=== PATIENT | female | born 1950 | race Caucasian/White ===

== ENCOUNTER 2017-12-31 14:55 | Inpatient (IN) ==
[2017-12-31 16:15] LABS: Basophils # 0.1 10*3/uL (0.0-0.2); Basophils % 0.8 % (0.0-0.8); Eosinophils # 0.5 10*3/uL (0.0-0.87); Eosinophils % 4.1 % (0.00-10.9); Hematocrit 37.1 VOL% (35.7-47.0); Hemoglobin 12.6 GM/DL (12.0-16.0); Immature Granulocytes % 0.4 %; Immature Granulocytes Absolute 0.04 #; Lymphocytes # 2.5 10*3/uL (1.4-4.0); Lymphocytes % 22.7 % (21.3-54.2); Mean Corpuscular Hemoglobin 30 PG (27-34); Mean Corpuscular Volume 86.9 FL (87-102); Mean Platelet Volume 10.6 FL (9.6-12.0); Monocytes # 0.9 10*3/uL (0.11-0.8); Monocytes % 8.2 % (1.7-12.7); Neutrophils # 7.1 10*3/uL (1.4-7.4); Neutrophils % 63.8 % (38.7-73.9); Platelet Count 340 T/CUMM (130-400); Red Blood Count 4.27 MC/CUMM (3.8-5.5); Red Cell Distribution Width 13.4 % (9.3-17.3); White Blood Count 11.2 T/CUMM (4-12)
[2017-12-31 16:30] LABS: Apearance,Urine CLEAR (Clear); Bilirubin,Urine Negative (Negative); Blood, Urine Negative (Negative); Glucose,Urine (UA) 50 mg/dL (Negative); Ketones,Urine Negative (Negative); Mucus,Urine Occasional /LPF (Occasional); Nitrite,Urine Negative (Negative); Protein,Urine Negative; RBC,Urine 3 /HPF (0-4); Renal Epithelial Cells,Urine Occasional /HPF (<1); Squamous Epithelial Cell,Urine Occasional /HPF (0-10); Urine Color Amber (Yellow); Urine Specific Gravity 1.013 (1.001-1.035); WBC,Urine 4 /HPF (0-6)
[2017-12-31 16:42] LABS: Albumin 3.9 G/DL (3.4-5.0); Bilirubin,Total 1.7 MG/DL (0.2-1.0); Calcium 9.7 MG/DL (8.5-10.1); Osmolality,Calculated 271.5 MOS/KG (273-304); Potassium 4.1 MMOL/L (3.5-5.1); Total Protein 7.2 G/DL (6.4-8.3)
[2017-12-31] MEDS ORDERED: SODIUM CHLORIDE 0.9% 1,000 ML IV STA (19:17)
[2017-12-31] MEDS ORDERED: DEXTROSE 50% 25 GM/50 ML VIAL IV PRN (20:22)
[2017-12-31] MEDS ORDERED: ONDANSETRON 4 MG/2 ML VIAL IV PRN (20:22)
[2017-12-31] MEDS ORDERED: GLUCAGON 1 MG VIAL IM PRN (20:22)
[2017-12-31] MEDS ORDERED: PROMETHAZINE 25 MG/1 ML VIAL IM PRN (20:22)
[2017-12-31] MEDS: ENOXAPARIN 40 MG/0.4 ML SYRINGE SUBCUT SCH (21:54)
[2017-12-31] MEDS: INSULIN REGULAR 100 UNIT/ML SUBCUT SCH (21:55)
[2017-12-31] MEDS: SODIUM CHLORIDE 0.9% 1,000 ML IV SCH (22:36)
[2018-01-01] MEDS: SODIUM CHLORIDE 0.9% 1,000 ML IV SCH ×5 (01:10→20:40)
[2018-01-01] MEDS: INSULIN REGULAR 100 UNIT/ML SUBCUT SCH ×4 (07:58→21:12)
[2018-01-01] MEDS: PANTOPRAZOLE 40 MG VIAL IV SCH (08:56)
[2018-01-01] MEDS ORDERED: LORazepam 2 MG/1 ML VIAL IV ONE (10:13)
[2018-01-01] MEDS ORDERED: ALBUTEROL/IPRATROPIUM 3 ML NEB RESP TX PRN (16:49)
[2018-01-01] MEDS: metFORMIN 500 MG TABLET PO SCH (17:18)
[2018-01-01] MEDS: ENOXAPARIN 40 MG/0.4 ML SYRINGE SUBCUT SCH (20:37)
[2018-01-01] MEDS: MAGNESIUM CHLORIDE 64 MG TABLET PO SCH (20:38)
[2018-01-01] MEDS ORDERED: SIMVASTATIN 40 MG TABLET PO SCH (21:00)
[2018-01-01] MEDS: METOPROLOL SUCCINATE XL 25 MG TABLET PO SCH (21:12)
[2018-01-02] MEDS: SODIUM CHLORIDE 0.9% 1,000 ML IV SCH (04:28)
[2018-01-02] MEDS: MAGNESIUM CHLORIDE 64 MG TABLET PO SCH (08:30)
[2018-01-02] MEDS: METOPROLOL SUCCINATE XL 25 MG TABLET PO SCH (08:30)
[2018-01-02] MEDS: metFORMIN 500 MG TABLET PO SCH (08:30)
[2018-01-02] MEDS: PANTOPRAZOLE 40 MG VIAL IV SCH (08:37)
[2018-01-02] MEDS: INSULIN REGULAR 100 UNIT/ML SUBCUT SCH ×2 (08:37→11:39)
[2018-01-02] MEDS ORDERED: CHOLECALCIFEROL 400 UNIT TABLET PO SCH (09:00)
[2018-01-02] MEDS ORDERED: DILTIAZEM CD 240 MG CAPSULE PO SCH (09:00)
[2018-01-02] MEDS ORDERED: LOSARTAN 50 MG TABLET PO SCH (09:00)
[2018-01-02] MEDS ORDERED: CETIRIZINE 10 MG TABLET PO SCH (09:00)
[2018-01-02] MEDS ORDERED: FUROSEMIDE 40 MG/4 ML VIAL IV ONE (10:40)
[2018-01-02 12:30] VITALS: BP 132/60
[2018-01-02] MEDS ORDERED: metFORMIN 500 MG TABLET PO SCH (13:21)
[2018-01-03] MEDS ORDERED: glyBURIDE 5 MG TABLET PO SCH (08:00)
== END 2018-01-02 15:45 | disposition home or self-care (01) | DRG 437 ==
LOC: N.ED 14:55 → N.EDINP 19:19 → N.4E 20:45
PROVIDERS: ADMIT Hospitalist; ATTEND Hospitalist

== ENCOUNTER 2018-09-17 13:34 | Inpatient (IN) ==
[2018-09-17] MEDS ORDERED: SODIUM CHLORIDE 0.9% 1,000 ML IV STA (13:59)
[2018-09-17] MEDS ORDERED: ONDANSETRON 4 MG/2 ML VIAL IV STA (13:59)
[2018-09-17 14:45] LABS: Basophils % 0.6 % (0.0-0.8); Eosinophils # 0.1 10*3/uL (0.0-0.87); Eosinophils % 1.9 % (0.00-10.9); Hematocrit 27.1 VOL% (35.7-47.0); Hemoglobin 8.8 GM/DL (12.0-16.0); Immature Granulocytes % 0.6 %; Immature Granulocytes Absolute 0.03 #; Lymphocytes # 0.5 10*3/uL (1.4-4.0); Lymphocytes % 8.5 % (21.3-54.2); Mean Corpuscular HGB Conc 32.5 GM/DL (32-36); Mean Corpuscular Hemoglobin 29 PG (27-34); Mean Corpuscular Volume 89.4 FL (87-102); Mean Platelet Volume 9.6 FL (9.6-12.0); Monocytes # 0.5 10*3/uL (0.11-0.8); Monocytes % 8.7 % (1.7-12.7); Neutrophils # 4.3 10*3/uL (1.4-7.4); Neutrophils % 79.7 % (38.7-73.9); Platelet Count 211 T/CUMM (130-400); Red Blood Count 3.03 MC/CUMM (3.8-5.5); Red Cell Distribution Width 13.9 % (9.3-17.3); White Blood Count 5.4 T/CUMM (4-12)
[2018-09-17 15:15] LABS: Albumin 2.8 G/DL (3.4-5.0); Bilirubin,Total 0.5 MG/DL (0.2-1.0); Calcium 9.1 MG/DL (8.5-10.1); Osmolality,Calculated 269.1 MOS/KG (273-304); Potassium 3.9 MMOL/L (3.5-5.1); Total Protein 6.4 G/DL (6.4-8.3)
[2018-09-17] MEDS ORDERED: ACETAMINOPHEN 325 MG TABLET PO PRN (17:39)
[2018-09-17] MEDS ORDERED: ALBUTEROL 2.5 MG/3 ML NEB RESP TX PRN (17:42)
[2018-09-17] MEDS ORDERED: FENOFIBRATE 145 MG TABLET PO SCH (21:00)
[2018-09-17] MEDS ORDERED: SIMVASTATIN 40 MG TABLET PO SCH (21:00)
[2018-09-17] MEDS: HYDROmorphone 2 MG/1 ML VIAL IV PRN (21:39)
[2018-09-17] MEDS: ONDANSETRON 4 MG/2 ML VIAL IV PRN (21:39)
[2018-09-17] MEDS: SODIUM CHLORIDE 0.9% 1,000 ML IV SCH (21:40)
[2018-09-17] MEDS: METOPROLOL SUCCINATE XL 25 MG TABLET PO SCH (22:59)
[2018-09-17] MEDS: MOMETASONE FUROATE 220 MCG INH SCH (22:59)
[2018-09-18] MEDS: ONDANSETRON 4 MG/2 ML VIAL IV PRN ×4 (05:42→23:49)
[2018-09-18] MEDS: HYDROmorphone 2 MG/1 ML VIAL IV PRN ×4 (05:42→23:46)
[2018-09-18 06:28] LABS: Basophils % 0.4 % (0.0-0.8); Eosinophils # 0.2 10*3/uL (0.0-0.87); Eosinophils % 3.8 % (0.00-10.9); Hematocrit 25.7 VOL% (35.7-47.0); Hemoglobin 8.4 GM/DL (12.0-16.0); Immature Granulocytes % 0.4 %; Immature Granulocytes Absolute 0.02 #; Lymphocytes # 0.4 10*3/uL (1.4-4.0); Lymphocytes % 8.8 % (21.3-54.2); Mean Corpuscular HGB Conc 32.7 GM/DL (32-36); Mean Corpuscular Hemoglobin 29 PG (27-34); Mean Corpuscular Volume 89.9 FL (87-102); Mean Platelet Volume 9.8 FL (9.6-12.0); Monocytes # 0.6 10*3/uL (0.11-0.8); Monocytes % 12.1 % (1.7-12.7); Neutrophils # 3.6 10*3/uL (1.4-7.4); Neutrophils % 74.5 % (38.7-73.9); Platelet Count 157 T/CUMM (130-400); Red Blood Count 2.86 MC/CUMM (3.8-5.5); Red Cell Distribution Width 13.9 % (9.3-17.3); White Blood Count 4.8 T/CUMM (4-12)
[2018-09-18 06:35] LABS: INR 1.1
[2018-09-18 06:53] LABS: Calcium 8.7 MG/DL (8.5-10.1); Osmolality,Calculated 272.7 MOS/KG (273-304); Potassium 3.6 MMOL/L (3.5-5.1); Risk Ratio 2.26; Thyroid Stimulating Hormone 2.26 uIU/ml (0.358-3.74); VLDL CHOLESTEROL 21.8 MG/DL
[2018-09-18] MEDS ORDERED: MAGNESIUM SULF RIDER 4 GM in PREMIX 1 EACH IV PRN (08:16)
[2018-09-18] MEDS: MOMETASONE FUROATE 220 MCG INH SCH ×2 (09:00→22:02)
[2018-09-18] MEDS ORDERED: CHOLECALCIFEROL 5,000 UNIT TABLET PO SCH (09:00)
[2018-09-18] MEDS ORDERED: VITAMIN E 1000 UNIT CAPSULE PO SCH (09:00)
[2018-09-18] MEDS ORDERED: PANTOPRAZOLE 40 MG TABLET PO SCH (09:00)
[2018-09-18] MEDS ORDERED: ASPIRIN EC 325 MG TABLET PO SCH (09:00)
[2018-09-18] MEDS: THYROID 60 MG TABLET PO SCH (09:58)
[2018-09-18] MEDS: metroNIDAZOLE INJ 500 MG in PREMIX 1 EACH IV SCH ×2 (09:58→21:23)
[2018-09-18] MEDS: CETIRIZINE 10 MG TABLET PO SCH (09:59)
[2018-09-18] MEDS: LOSARTAN 50 MG TABLET PO SCH (09:59)
[2018-09-18] MEDS: DILTIAZEM CD 240 MG CAPSULE PO SCH (09:59)
[2018-09-18] MEDS: METOPROLOL SUCCINATE XL 25 MG TABLET PO SCH ×2 (10:00→22:02)
[2018-09-18] MEDS: Biotin 5,000 MCG PO SCH (10:06)
[2018-09-18] MEDS: MAGNESIUM SULF RIDER 2 GM in PREMIX 1 EACH IV PRN (11:44)
[2018-09-18] MEDS ORDERED: HYDROmorphone 2 MG/1 ML VIAL IV ONE (19:45)
[2018-09-18] MEDS: SODIUM CHLORIDE 0.9% 1,000 ML IV SCH ×2 (21:23→22:02)
[2018-09-19] MEDS: SODIUM CHLORIDE 0.9% 1,000 ML IV SCH ×2 (00:15→06:23)
[2018-09-19] MEDS: HYDROmorphone 2 MG/1 ML VIAL IV PRN ×6 (03:28→22:10)
[2018-09-19] MEDS: ONDANSETRON 4 MG/2 ML VIAL IV PRN ×5 (03:30→22:10)
[2018-09-19 06:25] LABS: Basophils % 0.8 % (0.0-0.8); Eosinophils # 0.2 10*3/uL (0.0-0.87); Eosinophils % 3.9 % (0.00-10.9); Hematocrit 24.3 VOL% (35.7-47.0); Immature Granulocytes % 0.2 %; Immature Granulocytes Absolute 0.01 #; Lymphocytes # 0.4 10*3/uL (1.4-4.0); Lymphocytes % 7.8 % (21.3-54.2); Mean Corpuscular HGB Conc 31.3 GM/DL (32-36); Mean Corpuscular Hemoglobin 29 PG (27-34); Mean Corpuscular Volume 91.7 FL (87-102); Mean Platelet Volume 10.1 FL (9.6-12.0); Monocytes # 0.7 10*3/uL (0.11-0.8); Monocytes % 14.8 % (1.7-12.7); Neutrophils # 3.5 10*3/uL (1.4-7.4); Neutrophils % 72.5 % (38.7-73.9); Platelet Count 149 T/CUMM (130-400); Red Blood Count 2.65 MC/CUMM (3.8-5.5); Red Cell Distribution Width 13.9 % (9.3-17.3); White Blood Count 4.9 T/CUMM (4-12)
[2018-09-19 06:34] LABS: Calcium 8.5 MG/DL (8.5-10.1); Osmolality,Calculated 275.4 MOS/KG (273-304); Potassium 3.4 MMOL/L (3.5-5.1)
[2018-09-19 06:55] LABS: Hemoglobin 7.6 GM/DL (12.0-16.0)
[2018-09-19] MEDS ORDERED: POTASSIUM CHLORIDE 20 MEQ TABLET PO PRN (08:23)
[2018-09-19] MEDS ORDERED: SODIUM CHLORIDE 0.9% 1,000 ML IV PRN (08:24)
[2018-09-19] MEDS ORDERED: DEXAMETHASONE 10 MG/1 ML VIAL IV ONE (08:43)
[2018-09-19] MEDS ORDERED: ACETAMINOPHEN 500 MG TABLET PO ONE (08:43)
[2018-09-19] MEDS ORDERED: diphenhydrAMINE CAP 25 MG CAPSULE PO ONE (08:43)
[2018-09-19] MEDS ORDERED: diphenhydrAMINE 50 MG/1 ML VIAL IV ONE (08:45)
[2018-09-19] MEDS: LOSARTAN 50 MG TABLET PO SCH (09:55)
[2018-09-19] MEDS: THYROID 60 MG TABLET PO SCH (09:55)
[2018-09-19] MEDS: PANTOPRAZOLE 40 MG VIAL IV SCH (09:55)
[2018-09-19] MEDS: Biotin 5,000 MCG PO SCH (09:56)
[2018-09-19] MEDS: MOMETASONE FUROATE 220 MCG INH SCH ×2 (09:56→21:28)
[2018-09-19] MEDS: METOPROLOL SUCCINATE XL 25 MG TABLET PO SCH ×2 (09:56→21:21)
[2018-09-19] MEDS: SODIUM CHLOR 0.45% KCL 20 MEQ 20 MEQ/1,000 ML BAG IV SCH (09:56)
[2018-09-19] MEDS: DILTIAZEM CD 240 MG CAPSULE PO SCH (09:56)
[2018-09-19] MEDS: CETIRIZINE 10 MG TABLET PO SCH (09:57)
[2018-09-19] MEDS: metroNIDAZOLE INJ 500 MG in PREMIX 1 EACH IV SCH ×2 (09:58→21:22)
[2018-09-19] MEDS: MAGNESIUM SULF RIDER 2 GM in PREMIX 1 EACH IV PRN (18:39)
[2018-09-19 19:13] LABS: Hematocrit 33.7 VOL% (35.7-47.0)
[2018-09-20] MEDS: ONDANSETRON 4 MG/2 ML VIAL IV PRN ×6 (02:59→21:56)
[2018-09-20] MEDS: HYDROmorphone 2 MG/1 ML VIAL IV PRN ×4 (03:00→21:55)
[2018-09-20 05:14] LABS: Basophils % 0.2 % (0.0-0.8); Hematocrit 32.4 VOL% (35.7-47.0); Hemoglobin 10.6 GM/DL (12.0-16.0); Immature Granulocytes % 0.6 %; Immature Granulocytes Absolute 0.03 #; Lymphocytes # 0.3 10*3/uL (1.4-4.0); Lymphocytes % 5.4 % (21.3-54.2); Mean Corpuscular HGB Conc 32.7 GM/DL (32-36); Mean Corpuscular Hemoglobin 29 PG (27-34); Mean Platelet Volume 9.8 FL (9.6-12.0); Monocytes # 0.3 10*3/uL (0.11-0.8); Monocytes % 5.8 % (1.7-12.7); Neutrophils # 4.2 10*3/uL (1.4-7.4); Platelet Count 161 T/CUMM (130-400); Red Blood Count 3.68 MC/CUMM (3.8-5.5); Red Cell Distribution Width 14.6 % (9.3-17.3); White Blood Count 4.8 T/CUMM (4-12)
[2018-09-20 05:31] LABS: Calcium 8.7 MG/DL (8.5-10.1); Osmolality,Calculated 274.8 MOS/KG (273-304); Potassium 4.2 MMOL/L (3.5-5.1)
[2018-09-20] MEDS: THYROID 60 MG TABLET PO SCH (08:58)
[2018-09-20] MEDS: LOSARTAN 50 MG TABLET PO SCH (08:58)
[2018-09-20] MEDS: METOPROLOL SUCCINATE XL 25 MG TABLET PO SCH ×2 (08:59→21:54)
[2018-09-20] MEDS: DILTIAZEM CD 240 MG CAPSULE PO SCH (08:59)
[2018-09-20] MEDS: CETIRIZINE 10 MG TABLET PO SCH (08:59)
[2018-09-20] MEDS: PANTOPRAZOLE 40 MG VIAL IV SCH (09:01)
[2018-09-20] MEDS: SODIUM CHLOR 0.45% KCL 20 MEQ 20 MEQ/1,000 ML BAG IV SCH ×2 (09:04→21:58)
[2018-09-20] MEDS: metroNIDAZOLE INJ 500 MG in PREMIX 1 EACH IV SCH ×2 (09:04→21:54)
[2018-09-20] MEDS: Biotin 5,000 MCG PO SCH (09:05)
[2018-09-20] MEDS: MOMETASONE FUROATE 220 MCG INH SCH (09:06)
[2018-09-20] MEDS ORDERED: LOPERAMIDE 2 MG CAPSULE PO PRN (10:40)
[2018-09-20] MEDS: LIPASE/PROTEASE/AMYLASE 4,200 UNITS CAPSULE PO SCH ×2 (12:16→16:57)
[2018-09-21] MEDS: MOMETASONE FUROATE 220 MCG INH SCH ×2 (01:37→10:38)
[2018-09-21] MEDS: ONDANSETRON 4 MG/2 ML VIAL IV PRN ×4 (02:20→22:30)
[2018-09-21] MEDS: HYDROmorphone 2 MG/1 ML VIAL IV PRN ×5 (02:20→22:29)
[2018-09-21 05:57] LABS: Basophils % 0.2 % (0.0-0.8); Eosinophils % 0.5 % (0.00-10.9); Hematocrit 30.4 VOL% (35.7-47.0); Hemoglobin 9.8 GM/DL (12.0-16.0); Immature Granulocytes % 0.5 %; Immature Granulocytes Absolute 0.03 #; Lymphocytes # 0.3 10*3/uL (1.4-4.0); Lymphocytes % 5.5 % (21.3-54.2); Mean Corpuscular HGB Conc 32.2 GM/DL (32-36); Mean Corpuscular Hemoglobin 29 PG (27-34); Mean Corpuscular Volume 90.2 FL (87-102); Mean Platelet Volume 9.6 FL (9.6-12.0); Monocytes # 0.6 10*3/uL (0.11-0.8); Monocytes % 10.5 % (1.7-12.7); Neutrophils % 82.8 % (38.7-73.9); Platelet Count 145 T/CUMM (130-400); Red Blood Count 3.37 MC/CUMM (3.8-5.5); Red Cell Distribution Width 14.9 % (9.3-17.3)
[2018-09-21 06:23] LABS: Calcium 8.3 MG/DL (8.5-10.1); Potassium 3.6 MMOL/L (3.5-5.1)
[2018-09-21] MEDS: LIPASE/PROTEASE/AMYLASE 4,200 UNITS CAPSULE PO SCH ×3 (10:33→18:04)
[2018-09-21] MEDS: metroNIDAZOLE INJ 500 MG in PREMIX 1 EACH IV SCH ×2 (10:34→22:28)
[2018-09-21] MEDS: LOSARTAN 50 MG TABLET PO SCH (10:35)
[2018-09-21] MEDS: DILTIAZEM CD 240 MG CAPSULE PO SCH (10:35)
[2018-09-21] MEDS: CETIRIZINE 10 MG TABLET PO SCH (10:36)
[2018-09-21] MEDS: PANTOPRAZOLE 40 MG VIAL IV SCH (10:36)
[2018-09-21] MEDS: THYROID 60 MG TABLET PO SCH (10:37)
[2018-09-21] MEDS: Biotin 5,000 MCG PO SCH (10:37)
[2018-09-21] MEDS: METOPROLOL SUCCINATE XL 25 MG TABLET PO SCH (10:38)
[2018-09-21] MEDS: SODIUM CHLOR 0.45% KCL 20 MEQ 20 MEQ/1,000 ML BAG IV SCH ×2 (15:46→16:20)
[2018-09-21] MEDS ORDERED: PANTOPRAZOLE 40 MG VIAL IV ONE (23:25)
[2018-09-22] MEDS: MOMETASONE FUROATE 220 MCG INH SCH ×3 (00:40→22:00)
[2018-09-22] MEDS: METOPROLOL SUCCINATE XL 25 MG TABLET PO SCH ×3 (00:40→21:59)
[2018-09-22] MEDS: HYDROmorphone 2 MG/1 ML VIAL IV PRN ×4 (06:49→21:53)
[2018-09-22] MEDS: metroNIDAZOLE INJ 500 MG in PREMIX 1 EACH IV SCH ×2 (09:21→21:58)
[2018-09-22] MEDS: PANTOPRAZOLE 40 MG VIAL IV SCH (09:21)
[2018-09-22] MEDS: SODIUM CHLOR 0.45% KCL 20 MEQ 20 MEQ/1,000 ML BAG IV SCH (12:04)
[2018-09-22] MEDS: THYROID 60 MG TABLET PO SCH (12:05)
[2018-09-22] MEDS: LIPASE/PROTEASE/AMYLASE 4,200 UNITS CAPSULE PO SCH ×3 (12:05→16:51)
[2018-09-22] MEDS: DILTIAZEM CD 240 MG CAPSULE PO SCH (12:06)
[2018-09-22] MEDS: Biotin 5,000 MCG PO SCH (12:07)
[2018-09-22] MEDS: LOSARTAN 50 MG TABLET PO SCH (12:07)
[2018-09-22] MEDS: CETIRIZINE 10 MG TABLET PO SCH (12:08)
[2018-09-22] MEDS: ONDANSETRON 4 MG/2 ML VIAL IV PRN ×2 (12:54→18:34)
[2018-09-22] MEDS: LEVOFLOXACIN INJ 500 MG in PREMIX 1 EACH IV SCH (13:39)
[2018-09-22] MEDS: MAGNESIUM SULF RIDER 2 GM in PREMIX 1 EACH IV PRN (14:49)
[2018-09-22 18:22] LABS: Apearance,Urine CLEAR (Clear); Bacteria,Urine Few /HPF (Few); Bilirubin,Urine Negative (Negative); Blood, Urine Small mg/dL (Negative); Glucose,Urine (UA) Negative (Negative); Ketones,Urine 5 mg/dL (Negative); Mucus,Urine Few /LPF (Occasional); Nitrite,Urine Negative (Negative); Protein,Urine Negative; RBC,Urine 5 /HPF (0-4); Squamous Epithelial Cell,Urine Occasional /HPF (0-10); Urine Color Yellow (Yellow); Urine Specific Gravity 1.009 (1.001-1.035); Urine Urobilinogen < 2.0 EU/DL (0.2-1.0); WBC,Urine 14 /HPF (0-6)
[2018-09-23] MEDS: ONDANSETRON 4 MG/2 ML VIAL IV PRN ×4 (01:37→22:14)
[2018-09-23] MEDS: HYDROmorphone 2 MG/1 ML VIAL IV PRN ×4 (01:39→22:14)
[2018-09-23] MEDS: SODIUM CHLOR 0.45% KCL 20 MEQ 20 MEQ/1,000 ML BAG IV SCH ×3 (04:10→22:07)
[2018-09-23 08:25] LABS: Calcium 7.9 MG/DL (8.5-10.1); Osmolality,Calculated 265.2 MOS/KG (273-304); Potassium 3.3 MMOL/L (3.5-5.1)
[2018-09-23] MEDS: CETIRIZINE 10 MG TABLET PO SCH (09:41)
[2018-09-23] MEDS: THYROID 60 MG TABLET PO SCH (09:42)
[2018-09-23] MEDS: LIPASE/PROTEASE/AMYLASE 4,200 UNITS CAPSULE PO SCH ×3 (09:42→17:41)
[2018-09-23] MEDS: Biotin 5,000 MCG PO SCH (09:43)
[2018-09-23] MEDS: MOMETASONE FUROATE 220 MCG INH SCH ×2 (09:43→20:56)
[2018-09-23] MEDS: PANTOPRAZOLE 40 MG VIAL IV SCH (09:43)
[2018-09-23] MEDS: metroNIDAZOLE INJ 500 MG in PREMIX 1 EACH IV SCH ×2 (09:44→20:54)
[2018-09-23 11:48] LABS: Basophils % 0.3 % (0.0-0.8); Eosinophils # 0.1 10*3/uL (0.0-0.87); Eosinophils % 3.1 % (0.00-10.9); Hemoglobin 10.2 GM/DL (12.0-16.0); Immature Granulocytes % 0.6 %; Immature Granulocytes Absolute 0.02 #; Lymphocytes # 0.3 10*3/uL (1.4-4.0); Lymphocytes % 7.2 % (21.3-54.2); Mean Corpuscular HGB Conc 32.9 GM/DL (32-36); Mean Corpuscular Hemoglobin 29 PG (27-34); Mean Corpuscular Volume 88.3 FL (87-102); Mean Platelet Volume 10.2 FL (9.6-12.0); Monocytes # 0.7 10*3/uL (0.11-0.8); Monocytes % 18.7 % (1.7-12.7); Neutrophils # 2.5 10*3/uL (1.4-7.4); Neutrophils % 70.1 % (38.7-73.9); Red Blood Count 3.51 MC/CUMM (3.8-5.5); Red Cell Distribution Width 14.9 % (9.3-17.3)
[2018-09-23 11:54] LABS: Platelet Count 93 T/CUMM (130-400); White Blood Count 3.6 T/CUMM (4-12)
[2018-09-23 12:29] LABS: Hypochromasia 1+; Microcytosis 1+; Ovalocytes Slight
[2018-09-23] MEDS: LEVOFLOXACIN INJ 500 MG in PREMIX 1 EACH IV SCH (14:27)
[2018-09-23] MEDS: DILTIAZEM CD 240 MG CAPSULE PO SCH (14:27)
[2018-09-23] MEDS: LOSARTAN 50 MG TABLET PO SCH (14:27)
[2018-09-23] MEDS: METOPROLOL SUCCINATE XL 25 MG TABLET PO SCH ×2 (14:27→20:54)
[2018-09-23 17:27] LABS: Eosinophils 2 % (0-10); Lymphocytes 4 % (20-55); Segmented Neutrophils 78 % (50-85); Total Cells Counted 100
[2018-09-23 17:28] LABS: Platelet Estimate Decreased
[2018-09-23] MEDS: MAGNESIUM SULF RIDER 2 GM in PREMIX 1 EACH IV PRN (18:19)
[2018-09-23] MEDS: POTASSIUM CHLORIDE RIDER 10 MEQ in PREMIX 1 EACH IV PRN ×2 (22:15→23:28)
[2018-09-24] MEDS: POTASSIUM CHLORIDE RIDER 10 MEQ in PREMIX 1 EACH IV PRN ×2 (02:13→05:32)
[2018-09-24] MEDS: ONDANSETRON 4 MG/2 ML VIAL IV PRN ×5 (02:14→23:29)
[2018-09-24] MEDS: HYDROmorphone 2 MG/1 ML VIAL IV PRN ×5 (02:14→23:29)
[2018-09-24] MEDS: SODIUM CHLOR 0.45% KCL 20 MEQ 20 MEQ/1,000 ML BAG IV SCH ×2 (02:33→05:32)
[2018-09-24 07:15] LABS: Potassium 3.7 MMOL/L (3.5-5.1)
[2018-09-24] MEDS: metroNIDAZOLE INJ 500 MG in PREMIX 1 EACH IV SCH ×2 (09:07→20:58)
[2018-09-24] MEDS: PANTOPRAZOLE 40 MG VIAL IV SCH (09:09)
[2018-09-24] MEDS: LIPASE/PROTEASE/AMYLASE 4,200 UNITS CAPSULE PO SCH ×3 (09:09→17:40)
[2018-09-24] MEDS: LOSARTAN 50 MG TABLET PO SCH (09:16)
[2018-09-24] MEDS: Biotin 5,000 MCG PO SCH (09:16)
[2018-09-24] MEDS: DILTIAZEM CD 240 MG CAPSULE PO SCH (09:16)
[2018-09-24] MEDS: THYROID 60 MG TABLET PO SCH (09:16)
[2018-09-24] MEDS: MOMETASONE FUROATE 220 MCG INH SCH (09:17)
[2018-09-24] MEDS: METOPROLOL SUCCINATE XL 25 MG TABLET PO SCH ×2 (09:17→20:58)
[2018-09-24] MEDS: CETIRIZINE 10 MG TABLET PO SCH (09:17)
[2018-09-24] MEDS: LEVOFLOXACIN INJ 500 MG in PREMIX 1 EACH IV SCH (12:50)
[2018-09-24] MEDS: MAGNESIUM SULF RIDER 2 GM in PREMIX 1 EACH IV PRN (15:45)
[2018-09-24] MEDS ORDERED: PANTOPRAZOLE 40 MG VIAL IV ONE (23:11)
[2018-09-25] MEDS: SODIUM CHLOR 0.45% KCL 20 MEQ 20 MEQ/1,000 ML BAG IV SCH ×2 (03:14→03:15)
[2018-09-25 05:16] LABS: Basophils % 0.7 % (0.0-0.8); Eosinophils # 0.3 10*3/uL (0.0-0.87); Eosinophils % 11.9 % (0.00-10.9); Hematocrit 30.5 VOL% (35.7-47.0); Hemoglobin 9.8 GM/DL (12.0-16.0); Immature Granulocytes % 0.4 %; Immature Granulocytes Absolute 0.01 #; Lymphocytes # 0.5 10*3/uL (1.4-4.0); Lymphocytes % 18.3 % (21.3-54.2); Mean Corpuscular HGB Conc 32.1 GM/DL (32-36); Mean Corpuscular Hemoglobin 29 PG (27-34); Mean Corpuscular Volume 89.7 FL (87-102); Mean Platelet Volume 10.4 FL (9.6-12.0); Monocytes # 0.6 10*3/uL (0.11-0.8); Monocytes % 21.2 % (1.7-12.7); Neutrophils # 1.3 10*3/uL (1.4-7.4); Neutrophils % 47.5 % (38.7-73.9); White Blood Count 2.8 T/CUMM (4-12)
[2018-09-25 05:18] LABS: Platelet Count 98 T/CUMM (130-400)
[2018-09-25 05:33] LABS: Blood Urea Nitrogen < 1 MG/DL (7-18); Glucose 104 MG/DL (74-106); Potassium 3.6 MMOL/L (3.5-5.1); Sodium 138 MMOL/L (136-145)
[2018-09-25] MEDS: MOMETASONE FUROATE 220 MCG INH SCH ×2 (06:07→09:23)
[2018-09-25 06:10] LABS: Eosinophils 9 % (0-10); Lymphocytes 15 % (20-55); Platelet Estimate Decreased; Segmented Neutrophils 50 % (50-85); Total Cells Counted 100
[2018-09-25] MEDS: MAGNESIUM SULF RIDER 2 GM in PREMIX 1 EACH IV PRN ×2 (06:30→11:38)
[2018-09-25] MEDS: METOPROLOL SUCCINATE XL 25 MG TABLET PO SCH (08:53)
[2018-09-25] MEDS: LOSARTAN 50 MG TABLET PO SCH (08:53)
[2018-09-25] MEDS: THYROID 60 MG TABLET PO SCH (08:54)
[2018-09-25] MEDS: CETIRIZINE 10 MG TABLET PO SCH (08:54)
[2018-09-25] MEDS: DILTIAZEM CD 240 MG CAPSULE PO SCH (08:54)
[2018-09-25] MEDS: PANTOPRAZOLE 40 MG VIAL IV SCH (08:54)
[2018-09-25] MEDS: metroNIDAZOLE INJ 500 MG in PREMIX 1 EACH IV SCH (08:55)
[2018-09-25] MEDS: LIPASE/PROTEASE/AMYLASE 4,200 UNITS CAPSULE PO SCH ×3 (08:56→18:13)
[2018-09-25] MEDS: Biotin 5,000 MCG PO SCH (09:23)
[2018-09-25] MEDS: ONDANSETRON 4 MG/2 ML VIAL IV PRN ×4 (09:43→21:46)
[2018-09-25] MEDS: HYDROmorphone 2 MG/1 ML VIAL IV PRN ×4 (09:45→21:43)
[2018-09-25] MEDS: LEVOFLOXACIN INJ 500 MG in PREMIX 1 EACH IV SCH (13:39)
[2018-09-25] MEDS: POTASSIUM CHLORIDE RIDER 10 MEQ in PREMIX 1 EACH IV PRN ×2 (21:34→23:49)
[2018-09-26] MEDS: SODIUM CHLOR 0.45% KCL 20 MEQ 20 MEQ/1,000 ML BAG IV SCH ×2 (00:50→00:58)
[2018-09-26] MEDS: METOPROLOL SUCCINATE XL 25 MG TABLET PO SCH ×2 (00:51→09:11)
[2018-09-26] MEDS: MOMETASONE FUROATE 220 MCG INH SCH ×2 (00:51→10:59)
[2018-09-26] MEDS: ONDANSETRON 4 MG/2 ML VIAL IV PRN ×2 (02:19→13:52)
[2018-09-26] MEDS: HYDROmorphone 2 MG/1 ML VIAL IV PRN ×2 (02:22→13:51)
[2018-09-26 05:08] LABS: Basophils % 0.6 % (0.0-0.8); Eosinophils # 0.3 10*3/uL (0.0-0.87); Eosinophils % 9.7 % (0.00-10.9); Hematocrit 31.4 VOL% (35.7-47.0); Hemoglobin 10.1 GM/DL (12.0-16.0); Immature Granulocytes % 0.3 %; Immature Granulocytes Absolute 0.01 #; Lymphocytes # 0.6 10*3/uL (1.4-4.0); Lymphocytes % 17.5 % (21.3-54.2); Mean Corpuscular HGB Conc 32.2 GM/DL (32-36); Mean Corpuscular Hemoglobin 29 PG (27-34); Mean Corpuscular Volume 89.5 FL (87-102); Mean Platelet Volume 10.6 FL (9.6-12.0); Monocytes # 0.6 10*3/uL (0.11-0.8); Monocytes % 17.2 % (1.7-12.7); Neutrophils # 1.8 10*3/uL (1.4-7.4); Neutrophils % 54.7 % (38.7-73.9); Platelet Count 113 T/CUMM (130-400); Red Blood Count 3.51 MC/CUMM (3.8-5.5); Red Cell Distribution Width 14.9 % (9.3-17.3); White Blood Count 3.3 T/CUMM (4-12)
[2018-09-26 05:38] LABS: Blood Urea Nitrogen < 1 MG/DL (7-18); Calcium 8.4 MG/DL (8.5-10.1); Glucose 92 MG/DL (74-106); Osmolality,Calculated 269.2 MOS/KG (273-304); Potassium 3.8 MMOL/L (3.5-5.1); Sodium 137 MMOL/L (136-145)
[2018-09-26] MEDS: POTASSIUM CHLORIDE RIDER 10 MEQ in PREMIX 1 EACH IV PRN (06:20)
[2018-09-26 06:51] LABS: Eosinophils 8 % (0-10); Lymphocytes 12 % (20-55); Platelet Estimate Decreased; Segmented Neutrophils 64 % (50-85); Total Cells Counted 100
[2018-09-26] MEDS: LOSARTAN 50 MG TABLET PO SCH (09:10)
[2018-09-26] MEDS: THYROID 60 MG TABLET PO SCH (09:10)
[2018-09-26] MEDS: CETIRIZINE 10 MG TABLET PO SCH (09:10)
[2018-09-26] MEDS: PANTOPRAZOLE 40 MG VIAL IV SCH (09:11)
[2018-09-26] MEDS: LEVOFLOXACIN INJ 500 MG in PREMIX 1 EACH IV SCH ×2 (09:12→10:59)
[2018-09-26] MEDS: LIPASE/PROTEASE/AMYLASE 4,200 UNITS CAPSULE PO SCH ×2 (10:59→13:02)
[2018-09-26] MEDS: DILTIAZEM CD 240 MG CAPSULE PO SCH (10:59)
[2018-09-26] MEDS: Biotin 5,000 MCG PO SCH (10:59)
[2018-09-26 13:01] VITALS: BP 123/72
== END 2018-09-26 14:24 | disposition home health service (06) | DRG 392 ==
LOC: N.ED 13:34 → SUATTDRO 17:17 → N.5E 17:17
PROVIDERS: ADMIT Internal Medicine; ATTEND Internal Medicine

== ENCOUNTER 2018-09-27 12:56 | Inpatient (IN) ==
[2018-09-27 14:03] LABS: Basophils % 0.6 % (0.0-0.8); Eosinophils # 0.1 10*3/uL (0.0-0.87); Eosinophils % 2.5 % (0.00-10.9); Hematocrit 35.3 VOL% (35.7-47.0); Hemoglobin 11.4 GM/DL (12.0-16.0); Immature Granulocytes % 0.4 %; Immature Granulocytes Absolute 0.02 #; Lymphocytes # 0.5 10*3/uL (1.4-4.0); Lymphocytes % 8.7 % (21.3-54.2); Mean Corpuscular HGB Conc 32.3 GM/DL (32-36); Mean Corpuscular Hemoglobin 29 PG (27-34); Mean Corpuscular Volume 88.3 FL (87-102); Mean Platelet Volume 10.7 FL (9.6-12.0); Monocytes # 0.6 10*3/uL (0.11-0.8); Monocytes % 12.1 % (1.7-12.7); Neutrophils # 3.9 10*3/uL (1.4-7.4); Neutrophils % 75.7 % (38.7-73.9); Platelet Count 159 T/CUMM (130-400); Red Cell Distribution Width 15.1 % (9.3-17.3); White Blood Count 5.2 T/CUMM (4-12)
[2018-09-27 14:22] LABS: Albumin 2.7 G/DL (3.4-5.0); Bilirubin,Total 0.7 MG/DL (0.2-1.0); Calcium 8.8 MG/DL (8.5-10.1); Osmolality,Calculated 272.5 MOS/KG (273-304); Potassium 3.7 MMOL/L (3.5-5.1); Total Protein 6.2 G/DL (6.4-8.3)
[2018-09-27] MEDS ORDERED: ONDANSETRON 4 MG/2 ML VIAL IV STA (15:22)
[2018-09-27] MEDS ORDERED: SODIUM CHLORIDE 0.9% 1,000 ML IV STA (15:23)
[2018-09-27] MEDS ORDERED: PROMETHAZINE 25 MG/1 ML VIAL IM STA (17:15)
[2018-09-27] MEDS ORDERED: PROMETHAZINE 25 MG/1 ML VIAL ONE (17:17)
[2018-09-27 17:52] LABS: Apearance,Urine CLEAR (Clear); Bilirubin,Urine Negative (Negative); Blood, Urine Negative (Negative); Glucose,Urine (UA) Negative (Negative); Ketones,Urine Negative (Negative); Mucus,Urine Occasional /LPF (Occasional); Nitrite,Urine Negative (Negative); Protein,Urine Negative; RBC,Urine 2 /HPF (0-4); Squamous Epithelial Cell,Urine Occasional /HPF (0-10); Urine Color Straw (Yellow); Urine Specific Gravity 1.026 (1.001-1.035); Urine Urobilinogen < 2.0 EU/DL (0.2-1.0); WBC,Urine 1 /HPF (0-6)
[2018-09-27] MEDS ORDERED: GLUCAGON 1 MG VIAL IM PRN (18:21)
[2018-09-27] MEDS ORDERED: DEXTROSE 50% 25 GM/50 ML SYRINGE IV PRN (18:21)
[2018-09-27] MEDS ORDERED: ONDANSETRON 4 MG TABLET PO PRN (18:22)
[2018-09-27] MEDS ORDERED: HYOSCYAMINE 0.125 MG TABLET PO PRN (18:22)
[2018-09-27] MEDS ORDERED: PROMETHAZINE 25 MG TABLET PO PRN (18:22)
[2018-09-27] MEDS ORDERED: LOPERAMIDE 2 MG CAPSULE PO PRN (18:22)
[2018-09-27] MEDS ORDERED: DEXT IV SCH (18:30)
[2018-09-27] MEDS ORDERED: AMINO ACIDS IV SCH (18:30)
[2018-09-27] MEDS ORDERED: LYTES IV SCH (18:30)
[2018-09-27] MEDS ORDERED: ALBUTEROL 2.5 MG/3 ML NEB RESP TX PRN (19:00)
[2018-09-27] MEDS ORDERED: PROMETHAZINE 25 MG/1 ML VIAL IM PRN (20:23)
[2018-09-27] MEDS ORDERED: NON-FORMULARY MEDICATION (Fenofibric Acid (Choline) [Fenofibric Acid] 135 MG) PO SCH (21:00)
[2018-09-27] MEDS: MOMETASONE 220 MCG/PUFF INHALER 14 DOSE INH SCH (22:34)
[2018-09-27] MEDS: SIMVASTATIN 40 MG TABLET PO SCH (22:46)
[2018-09-27] MEDS: METOPROLOL SUCCINATE XL 25 MG TABLET PO SCH (22:46)
[2018-09-27] MEDS: ONDANSETRON 4 MG/2 ML VIAL IV PRN (23:35)
[2018-09-28] MEDS: INSULIN REGULAR 100 UNIT/ML SUBCUT SCH ×4 (01:19→18:00)
[2018-09-28] MEDS: ONDANSETRON 4 MG/2 ML VIAL IV PRN ×5 (03:44→21:54)
[2018-09-28] MEDS: HYDROmorphone 2 MG/1 ML VIAL IV PRN ×5 (03:46→21:55)
[2018-09-28 05:41] LABS: Calcium 8.2 MG/DL (8.5-10.1); Osmolality,Calculated 277.3 MOS/KG (273-304); Potassium 3.4 MMOL/L (3.5-5.1)
[2018-09-28] MEDS: THYROID 60 MG TABLET PO SCH (10:49)
[2018-09-28] MEDS: DILTIAZEM CD 240 MG CAPSULE PO SCH (10:49)
[2018-09-28] MEDS: ASPIRIN EC 325 MG TABLET PO SCH (10:49)
[2018-09-28] MEDS: LOSARTAN 50 MG TABLET PO SCH (10:49)
[2018-09-28] MEDS: LANSOPRAZOLE ODT 30 MG TABLET PO SCH (10:50)
[2018-09-28] MEDS: CETIRIZINE 10 MG TABLET PO SCH (10:51)
[2018-09-28] MEDS: METOPROLOL SUCCINATE XL 25 MG TABLET PO SCH ×2 (10:51→21:55)
[2018-09-28] MEDS: ASCORBIC ACID 500 MG TABLET PO SCH (10:51)
[2018-09-28] MEDS: AMINO ACIDS/DEXT/LYTES 5-15% 2,000 ML IV SCH (15:12)
[2018-09-28] MEDS: MOMETASONE 220 MCG/PUFF INHALER 14 DOSE INH SCH ×2 (15:16→21:54)
[2018-09-28] MEDS: SIMVASTATIN 40 MG TABLET PO SCH (22:00)
[2018-09-29] MEDS: INSULIN REGULAR 100 UNIT/ML SUBCUT SCH ×4 (01:28→20:02)
[2018-09-29] MEDS: ONDANSETRON 4 MG/2 ML VIAL IV PRN ×5 (02:22→22:28)
[2018-09-29] MEDS: HYDROmorphone 2 MG/1 ML VIAL IV PRN ×5 (02:23→22:30)
[2018-09-29 05:12] LABS: Calcium 7.8 MG/DL (8.5-10.1); Osmolality,Calculated 271.8 MOS/KG (273-304); Potassium 3.3 MMOL/L (3.5-5.1)
[2018-09-29] MEDS: MOMETASONE 220 MCG/PUFF INHALER 14 DOSE INH SCH ×2 (09:05→20:46)
[2018-09-29] MEDS: ASPIRIN EC 325 MG TABLET PO SCH (11:26)
[2018-09-29] MEDS: LANSOPRAZOLE ODT 30 MG TABLET PO SCH (11:27)
[2018-09-29] MEDS: DILTIAZEM CD 240 MG CAPSULE PO SCH (11:27)
[2018-09-29] MEDS: LOSARTAN 50 MG TABLET PO SCH (11:27)
[2018-09-29] MEDS: METOPROLOL SUCCINATE XL 25 MG TABLET PO SCH (11:27)
[2018-09-29] MEDS: CETIRIZINE 10 MG TABLET PO SCH ×2 (11:28→12:17)
[2018-09-29] MEDS: ASCORBIC ACID 500 MG TABLET PO SCH (11:28)
[2018-09-29] MEDS: PANTOPRAZOLE 40 MG VIAL IV SCH (12:17)
[2018-09-29] MEDS: LEVOTHYROXINE 100 MCG VIAL IV SCH (12:18)
[2018-09-29] MEDS: cloNIDine 0.1 MG/24 HR PATCH TRANSDERM SCH (12:20)
[2018-09-29] MEDS: THYROID 60 MG TABLET PO SCH (12:28)
[2018-09-29] MEDS ORDERED: MAGNESIUM SULF RIDER 2 GM in PREMIX 1 EACH IV ONE (15:41)
[2018-09-29] MEDS: TRACE ELEMENTS (5) 1 ML, MULTIVITAMIN INJ 10 ML in AMINO ACIDS/DEXT/LYTES 5-15% 2,000 ML IV SCH (18:45)
[2018-09-29] MEDS: FAT EMULSION 20% 250 ML IV SCH (18:45)
[2018-09-29] MEDS: AMINO ACIDS/DEXT/LYTES 5-15% 2,000 ML IV SCH (20:03)
[2018-09-29] MEDS: SIMVASTATIN 40 MG TABLET PO SCH (20:45)
[2018-09-30] MEDS: INSULIN REGULAR 100 UNIT/ML SUBCUT SCH ×4 (00:24→19:26)
[2018-09-30] MEDS: ONDANSETRON 4 MG/2 ML VIAL IV PRN ×5 (02:24→21:37)
[2018-09-30] MEDS: HYDROmorphone 2 MG/1 ML VIAL IV PRN ×5 (02:26→21:37)
[2018-09-30] MEDS ORDERED: POTASSIUM CHLORIDE RIDER 20 MEQ in PREMIX 1 EACH IV PRN (08:22)
[2018-09-30] MEDS ORDERED: POTASSIUM CHLORIDE RIDER 10 MEQ in PREMIX 1 EACH IV PRN (08:22)
[2018-09-30] MEDS ORDERED: MAGNESIUM SULF RIDER 4 GM in PREMIX 1 EACH IV PRN (08:23)
[2018-09-30] MEDS ORDERED: MAGNESIUM SULF RIDER 2 GM in PREMIX 1 EACH IV PRN (08:23)
[2018-09-30] MEDS: PANTOPRAZOLE 40 MG VIAL IV SCH (09:52)
[2018-09-30] MEDS: CETIRIZINE 10 MG TABLET PO SCH (09:53)
[2018-09-30] MEDS: ASPIRIN EC 325 MG TABLET PO SCH (09:57)
[2018-09-30] MEDS: MOMETASONE 220 MCG/PUFF INHALER 14 DOSE INH SCH ×2 (09:57→21:41)
[2018-09-30] MEDS: ASCORBIC ACID 500 MG TABLET PO SCH (09:58)
[2018-09-30] MEDS: LEVOTHYROXINE 100 MCG VIAL IV SCH (10:06)
[2018-09-30] MEDS: DIPHENOXYLATE/ATROPINE 2.5-0.025 MG TABLET PO SCH ×2 (17:35→21:46)
[2018-09-30] MEDS: FAT EMULSION 20% 250 ML IV SCH (17:36)
[2018-09-30] MEDS: SIMVASTATIN 40 MG TABLET PO SCH (22:49)
[2018-10-01] MEDS: TRACE ELEMENTS (5) 1 ML, MULTIVITAMIN INJ 10 ML in AMINO ACIDS/DEXT/LYTES 5-15% 2,000 ML IV SCH (00:50)
[2018-10-01] MEDS: INSULIN REGULAR 100 UNIT/ML SUBCUT SCH ×4 (00:54→19:23)
[2018-10-01] MEDS: HYDROmorphone 2 MG/1 ML VIAL IV PRN ×5 (01:30→20:57)
[2018-10-01] MEDS: ONDANSETRON 4 MG/2 ML VIAL IV PRN ×5 (01:30→20:57)
[2018-10-01 07:01] LABS: Calcium 8.1 MG/DL (8.5-10.1); Osmolality,Calculated 274.8 MOS/KG (273-304); Potassium 3.8 MMOL/L (3.5-5.1)
[2018-10-01] MEDS: CETIRIZINE 10 MG TABLET PO SCH (10:16)
[2018-10-01] MEDS: DIPHENOXYLATE/ATROPINE 2.5-0.025 MG TABLET PO SCH ×2 (10:16→20:55)
[2018-10-01] MEDS: LEVOTHYROXINE 100 MCG VIAL IV SCH (10:16)
[2018-10-01] MEDS: PANTOPRAZOLE 40 MG VIAL IV SCH (10:18)
[2018-10-01] MEDS: ASCORBIC ACID 500 MG TABLET PO SCH (10:21)
[2018-10-01] MEDS: MOMETASONE 220 MCG/PUFF INHALER 14 DOSE INH SCH ×2 (10:21→21:01)
[2018-10-01] MEDS: ASPIRIN EC 325 MG TABLET PO SCH (10:21)
[2018-10-01] MEDS: FAT EMULSION 20% 250 ML IV SCH (19:29)
[2018-10-01] MEDS: SIMVASTATIN 40 MG TABLET PO SCH (21:02)
[2018-10-02] MEDS: INSULIN REGULAR 100 UNIT/ML SUBCUT SCH ×4 (00:01→19:19)
[2018-10-02] MEDS: TRACE ELEMENTS (5) 1 ML, MULTIVITAMIN INJ 10 ML in AMINO ACIDS/DEXT/LYTES 5-15% 2,000 ML IV SCH (01:15)
[2018-10-02] MEDS: ONDANSETRON 4 MG/2 ML VIAL IV PRN ×5 (01:21→21:19)
[2018-10-02] MEDS: HYDROmorphone 2 MG/1 ML VIAL IV PRN ×5 (01:22→21:19)
[2018-10-02 05:15] LABS: Basophils % 0.6 % (0.0-0.8); Eosinophils # 0.3 10*3/uL (0.0-0.87); Eosinophils % 8.7 % (0.00-10.9); Hematocrit 29.6 VOL% (35.7-47.0); Hemoglobin 9.3 GM/DL (12.0-16.0); Lymphocytes # 0.4 10*3/uL (1.4-4.0); Lymphocytes % 14.1 % (21.3-54.2); Mean Corpuscular HGB Conc 31.4 GM/DL (32-36); Mean Corpuscular Hemoglobin 28 PG (27-34); Mean Corpuscular Volume 90.5 FL (87-102); Mean Platelet Volume 11.4 FL (9.6-12.0); Monocytes # 0.6 10*3/uL (0.11-0.8); Monocytes % 18.6 % (1.7-12.7); Neutrophils # 1.8 10*3/uL (1.4-7.4); Red Blood Count 3.27 MC/CUMM (3.8-5.5); Red Cell Distribution Width 15.1 % (9.3-17.3); White Blood Count 3.1 T/CUMM (4-12)
[2018-10-02 05:18] LABS: Platelet Count 92 T/CUMM (130-400)
[2018-10-02 05:39] LABS: Bilirubin,Total 0.4 MG/DL (0.2-1.0); Calcium 8.1 MG/DL (8.5-10.1); Osmolality,Calculated 277.7 MOS/KG (273-304)
[2018-10-02 05:41] LABS: Anisocytosis 1+; Band Neutrophils 2 % (0-10); Eosinophils 9 % (0-10); Lymphocytes 15 % (20-55); Platelet Estimate Decreased; Segmented Neutrophils 61 % (50-85); Total Cells Counted 100
[2018-10-02] MEDS: LEVOTHYROXINE 100 MCG VIAL IV SCH (09:24)
[2018-10-02] MEDS: PANTOPRAZOLE 40 MG VIAL IV SCH (09:26)
[2018-10-02] MEDS: CETIRIZINE 10 MG TABLET PO SCH (11:16)
[2018-10-02] MEDS: MOMETASONE 220 MCG/PUFF INHALER 14 DOSE INH SCH ×2 (12:30→21:18)
[2018-10-02] MEDS: ASCORBIC ACID 500 MG TABLET PO SCH (12:30)
[2018-10-02] MEDS: ASPIRIN EC 325 MG TABLET PO SCH (12:30)
[2018-10-02] MEDS: DIPHENOXYLATE/ATROPINE 2.5-0.025 MG TABLET PO SCH ×2 (15:55→21:19)
[2018-10-02] MEDS: FAT EMULSION 20% 250 ML IV SCH (16:03)
[2018-10-02] MEDS: SIMVASTATIN 40 MG TABLET PO SCH (21:20)
[2018-10-03] MEDS: INSULIN REGULAR 100 UNIT/ML SUBCUT SCH ×5 (00:25→23:58)
[2018-10-03] MEDS: ONDANSETRON 4 MG/2 ML VIAL IV PRN ×6 (01:26→22:20)
[2018-10-03] MEDS: HYDROmorphone 2 MG/1 ML VIAL IV PRN ×6 (01:27→22:23)
[2018-10-03] MEDS: TRACE ELEMENTS (5) 1 ML, MULTIVITAMIN INJ 10 ML in AMINO ACIDS/DEXT/LYTES 5-15% 2,000 ML IV SCH (01:27)
[2018-10-03 05:37] LABS: Eosinophils # 0.3 10*3/uL (0.0-0.87); Eosinophils % 10.7 % (0.00-10.9); Hematocrit 29.7 VOL% (35.7-47.0); Hemoglobin 9.4 GM/DL (12.0-16.0); Immature Granulocytes % 0.3 %; Immature Granulocytes Absolute 0.01 #; Lymphocytes # 0.6 10*3/uL (1.4-4.0); Lymphocytes % 18.1 % (21.3-54.2); Mean Corpuscular HGB Conc 31.6 GM/DL (32-36); Mean Corpuscular Hemoglobin 29 PG (27-34); Mean Platelet Volume 11.6 FL (9.6-12.0); Monocytes # 0.5 10*3/uL (0.11-0.8); Monocytes % 15.5 % (1.7-12.7); Neutrophils # 1.7 10*3/uL (1.4-7.4); Neutrophils % 54.4 % (38.7-73.9); Platelet Count 98 T/CUMM (130-400); Red Cell Distribution Width 15.3 % (9.3-17.3); White Blood Count 3.1 T/CUMM (4-12)
[2018-10-03 05:58] LABS: Albumin 2.1 G/DL (3.4-5.0); Bilirubin,Total 0.5 MG/DL (0.2-1.0); Calcium 8.3 MG/DL (8.5-10.1); Osmolality,Calculated 279.5 MOS/KG (273-304); Potassium 3.9 MMOL/L (3.5-5.1); Total Protein 5.1 G/DL (6.4-8.3)
[2018-10-03] MEDS: DIPHENOXYLATE/ATROPINE 2.5-0.025 MG TABLET PO SCH ×3 (06:01→21:44)
[2018-10-03 06:10] LABS: Anisocytosis 1+; Band Neutrophils 5 % (0-10); Eosinophils 7 % (0-10); Lymphocytes 8 % (20-55); Platelet Estimate Decreased; Segmented Neutrophils 68 % (50-85); Total Cells Counted 100
[2018-10-03 06:11] LABS: Hypochromasia Slight; Poikilocytosis Slight
[2018-10-03] MEDS: LEVOTHYROXINE 100 MCG VIAL IV SCH (09:02)
[2018-10-03] MEDS: CETIRIZINE 10 MG TABLET PO SCH (09:02)
[2018-10-03] MEDS: PANTOPRAZOLE 40 MG VIAL IV SCH (09:05)
[2018-10-03] MEDS: ASCORBIC ACID 500 MG TABLET PO SCH (09:08)
[2018-10-03] MEDS: ASPIRIN EC 325 MG TABLET PO SCH (09:08)
[2018-10-03] MEDS: MOMETASONE 220 MCG/PUFF INHALER 14 DOSE INH SCH ×2 (09:08→21:43)
[2018-10-03] MEDS: FAT EMULSION 20% 250 ML IV SCH (16:43)
[2018-10-03] MEDS: SIMVASTATIN 40 MG TABLET PO SCH (21:43)
[2018-10-04] MEDS: ONDANSETRON 4 MG/2 ML VIAL IV PRN ×5 (02:22→20:33)
[2018-10-04] MEDS: HYDROmorphone 2 MG/1 ML VIAL IV PRN ×5 (02:24→20:35)
[2018-10-04 05:25] LABS: Eosinophils # 0.4 10*3/uL (0.0-0.87); Eosinophils % 8.9 % (0.00-10.9); Hematocrit 31.5 VOL% (35.7-47.0); Hemoglobin 9.9 GM/DL (12.0-16.0); Immature Granulocytes % 0.5 %; Immature Granulocytes Absolute 0.02 #; Lymphocytes # 0.3 10*3/uL (1.4-4.0); Lymphocytes % 7.9 % (21.3-54.2); Mean Corpuscular HGB Conc 31.4 GM/DL (32-36); Mean Corpuscular Hemoglobin 28 PG (27-34); Mean Corpuscular Volume 90.3 FL (87-102); Mean Platelet Volume 11.7 FL (9.6-12.0); Monocytes # 0.5 10*3/uL (0.11-0.8); Monocytes % 13.2 % (1.7-12.7); Neutrophils # 2.7 10*3/uL (1.4-7.4); Neutrophils % 68.5 % (38.7-73.9); Platelet Count 105 T/CUMM (130-400); Red Blood Count 3.49 MC/CUMM (3.8-5.5); Red Cell Distribution Width 15.3 % (9.3-17.3); White Blood Count 3.9 T/CUMM (4-12)
[2018-10-04 05:58] LABS: Albumin 2.5 G/DL (3.4-5.0); Bilirubin,Total 0.7 MG/DL (0.2-1.0); Calcium 8.2 MG/DL (8.5-10.1); Osmolality,Calculated 275.8 MOS/KG (273-304); Potassium 3.8 MMOL/L (3.5-5.1); Total Protein 5.6 G/DL (6.4-8.3)
[2018-10-04] MEDS: INSULIN REGULAR 100 UNIT/ML SUBCUT SCH ×3 (06:01→18:29)
[2018-10-04] MEDS: DIPHENOXYLATE/ATROPINE 2.5-0.025 MG TABLET PO SCH ×3 (07:22→22:05)
[2018-10-04] MEDS: HYOSCYAMINE 0.125 MG TABLET SL SCH ×4 (10:24→22:05)
[2018-10-04] MEDS: ASPIRIN EC 325 MG TABLET PO SCH (10:24)
[2018-10-04] MEDS: ASCORBIC ACID 500 MG TABLET PO SCH (10:24)
[2018-10-04] MEDS: LEVOTHYROXINE 100 MCG VIAL IV SCH (10:25)
[2018-10-04] MEDS: MOMETASONE 220 MCG/PUFF INHALER 14 DOSE INH SCH ×2 (10:25→20:43)
[2018-10-04] MEDS: CETIRIZINE 10 MG TABLET PO SCH (10:25)
[2018-10-04] MEDS: PANTOPRAZOLE 40 MG VIAL IV SCH (10:28)
[2018-10-04] MEDS: TRACE ELEMENTS (5) 1 ML, MULTIVITAMIN INJ 10 ML in AMINO ACIDS/DEXT/LYTES 5-15% 2,000 ML IV SCH (10:50)
[2018-10-04] MEDS: FAT EMULSION 20% 250 ML IV SCH (16:22)
[2018-10-04] MEDS: SIMVASTATIN 40 MG TABLET PO SCH (20:33)
[2018-10-05] MEDS: ONDANSETRON 4 MG/2 ML VIAL IV PRN ×4 (00:26→13:27)
[2018-10-05] MEDS: HYDROmorphone 2 MG/1 ML VIAL IV PRN ×6 (00:28→21:32)
[2018-10-05] MEDS: INSULIN REGULAR 100 UNIT/ML SUBCUT SCH ×4 (01:48→17:42)
[2018-10-05] MEDS: HYOSCYAMINE 0.125 MG TABLET SL SCH ×6 (01:56→22:53)
[2018-10-05 06:15] LABS: Basophils % 0.7 % (0.0-0.8); Eosinophils # 0.2 10*3/uL (0.0-0.87); Eosinophils % 8.1 % (0.00-10.9); Hematocrit 28.1 VOL% (35.7-47.0); Immature Granulocytes % 0.4 %; Immature Granulocytes Absolute 0.01 #; Lymphocytes # 0.3 10*3/uL (1.4-4.0); Mean Corpuscular Hemoglobin 29 PG (27-34); Mean Corpuscular Volume 89.5 FL (87-102); Mean Platelet Volume 11.7 FL (9.6-12.0); Monocytes # 0.5 10*3/uL (0.11-0.8); Neutrophils # 1.7 10*3/uL (1.4-7.4); Neutrophils % 60.8 % (38.7-73.9); Platelet Count 81 T/CUMM (130-400); Red Blood Count 3.14 MC/CUMM (3.8-5.5); Red Cell Distribution Width 15.3 % (9.3-17.3); White Blood Count 2.8 T/CUMM (4-12)
[2018-10-05 06:48] LABS: Albumin 2.2 G/DL (3.4-5.0); Bilirubin,Total 0.7 MG/DL (0.2-1.0); Calcium 8.2 MG/DL (8.5-10.1); Osmolality,Calculated 275.8 MOS/KG (273-304); Potassium 4.2 MMOL/L (3.5-5.1); Total Protein 5.1 G/DL (6.4-8.3)
[2018-10-05] MEDS: DIPHENOXYLATE/ATROPINE 2.5-0.025 MG TABLET PO SCH ×3 (09:05→22:52)
[2018-10-05] MEDS: PANTOPRAZOLE 40 MG VIAL IV SCH (09:05)
[2018-10-05] MEDS: ASPIRIN EC 325 MG TABLET PO SCH (09:05)
[2018-10-05] MEDS: LEVOTHYROXINE 100 MCG VIAL IV SCH (09:05)
[2018-10-05] MEDS: CETIRIZINE 10 MG TABLET PO SCH (09:05)
[2018-10-05] MEDS: ASCORBIC ACID 500 MG TABLET PO SCH (09:05)
[2018-10-05] MEDS: MOMETASONE 220 MCG/PUFF INHALER 14 DOSE INH SCH ×2 (09:12→22:54)
[2018-10-05 09:37] LABS: Eosinophils 7 % (0-10); Lymphocytes 8 % (20-55); Segmented Neutrophils 63 % (50-85); Total Cells Counted 100
[2018-10-05 09:38] LABS: Hypochromasia 1+; Ovalocytes Few; Platelet Estimate Decreased; Polychromasia Slight; Schistocytes Few
[2018-10-05] MEDS: TRACE ELEMENTS (5) 1 ML, MULTIVITAMIN INJ 10 ML in AMINO ACIDS/DEXT/LYTES 5-15% 2,000 ML IV SCH (13:40)
[2018-10-05] MEDS: FAT EMULSION 20% 250 ML IV SCH (16:39)
[2018-10-05] MEDS: SIMVASTATIN 40 MG TABLET PO SCH (21:32)
[2018-10-06] MEDS: HYDROmorphone 2 MG/1 ML VIAL IV PRN ×6 (01:21→22:23)
[2018-10-06] MEDS: ONDANSETRON 4 MG/2 ML VIAL IV PRN ×6 (01:23→22:19)
[2018-10-06] MEDS: INSULIN REGULAR 100 UNIT/ML SUBCUT SCH ×5 (01:40→23:52)
[2018-10-06] MEDS: HYOSCYAMINE 0.125 MG TABLET SL SCH ×6 (02:32→22:15)
[2018-10-06 05:42] LABS: Basophils % 1.2 % (0.0-0.8); Eosinophils # 0.3 10*3/uL (0.0-0.87); Eosinophils % 9.8 % (0.00-10.9); Hematocrit 28.2 VOL% (35.7-47.0); Immature Granulocytes % 0.4 %; Immature Granulocytes Absolute 0.01 #; Lymphocytes # 0.4 10*3/uL (1.4-4.0); Mean Corpuscular HGB Conc 31.9 GM/DL (32-36); Mean Corpuscular Hemoglobin 29 PG (27-34); Mean Corpuscular Volume 90.1 FL (87-102); Mean Platelet Volume 12.1 FL (9.6-12.0); Monocytes # 0.7 10*3/uL (0.11-0.8); Monocytes % 25.8 % (1.7-12.7); Neutrophils # 1.2 10*3/uL (1.4-7.4); Neutrophils % 46.8 % (38.7-73.9); Red Blood Count 3.13 MC/CUMM (3.8-5.5); Red Cell Distribution Width 15.4 % (9.3-17.3); White Blood Count 2.6 T/CUMM (4-12)
[2018-10-06 05:49] LABS: Platelet Count 82 T/CUMM (130-400)
[2018-10-06 06:09] LABS: Albumin 2.3 G/DL (3.4-5.0); Bilirubin,Total 0.9 MG/DL (0.2-1.0); Calcium 8.2 MG/DL (8.5-10.1); Osmolality,Calculated 280.5 MOS/KG (273-304); Total Protein 5.2 G/DL (6.4-8.3)
[2018-10-06 06:15] LABS: Calcium 8.1 MG/DL (8.5-10.1); Osmolality,Calculated 278.7 MOS/KG (273-304); Potassium 3.9 MMOL/L (3.5-5.1); Prealbumin 8.6 MG/DL (20-40)
[2018-10-06 06:45] LABS: Band Neutrophils 1 % (0-10); Eosinophils 11 % (0-10); Lymphocytes 16 % (20-55); Segmented Neutrophils 56 % (50-85); Total Cells Counted 100
[2018-10-06 06:46] LABS: Hypochromasia 1+; Microcytosis 1+; Ovalocytes Slight; Platelet Estimate Decreased
[2018-10-06] MEDS: DIPHENOXYLATE/ATROPINE 2.5-0.025 MG TABLET PO SCH ×3 (09:48→22:15)
[2018-10-06] MEDS: ASPIRIN EC 325 MG TABLET PO SCH (09:48)
[2018-10-06] MEDS: CETIRIZINE 10 MG TABLET PO SCH (09:48)
[2018-10-06] MEDS: ASCORBIC ACID 500 MG TABLET PO SCH (09:48)
[2018-10-06] MEDS: PANTOPRAZOLE 40 MG VIAL IV SCH (09:50)
[2018-10-06] MEDS: LEVOTHYROXINE 100 MCG VIAL IV SCH (09:51)
[2018-10-06] MEDS: MOMETASONE 220 MCG/PUFF INHALER 14 DOSE INH SCH ×2 (09:57→20:52)
[2018-10-06] MEDS: cloNIDine 0.1 MG/24 HR PATCH TRANSDERM SCH (12:22)
[2018-10-06] MEDS ORDERED: [UNRECOGNIZED DRUG - OTHER] IV SCH (14:00)
[2018-10-06] MEDS ORDERED: MULTIVITAMIN IV SCH (14:00)
[2018-10-06] MEDS ORDERED: TRACE ELEMENTS IV SCH (14:00)
[2018-10-06] MEDS ORDERED: MAGNESIUM SULF IV SCH (14:00)
[2018-10-06] MEDS ORDERED: MAGNESIUM SULF RIDER 2 GM in PREMIX 1 EACH IV PRN (15:00)
[2018-10-06] MEDS: FAT EMULSION 20% 250 ML IV SCH (18:15)
[2018-10-06] MEDS: TRACE ELEMENTS IV SCH (18:15)
[2018-10-06] MEDS: MULTIVITAMIN IV SCH (18:15)
[2018-10-06] MEDS: MAGNESIUM SULF IV SCH (18:15)
[2018-10-06] MEDS: [UNRECOGNIZED DRUG - OTHER] IV SCH (18:15)
[2018-10-06] MEDS: TRACE ELEMENTS (5) 1 ML, MULTIVITAMIN INJ 10 ML in AMINO ACIDS/DEXT/LYTES 5-15% 2,000 ML IV SCH (19:45)
[2018-10-06] MEDS: ONDANSETRON 4 MG TABLET PO SCH ×2 (20:10→23:50)
[2018-10-06] MEDS: SIMVASTATIN 40 MG TABLET PO SCH (20:52)
[2018-10-07] MEDS: HYOSCYAMINE 0.125 MG TABLET SL SCH ×6 (02:20→22:07)
[2018-10-07] MEDS: ONDANSETRON 4 MG/2 ML VIAL IV PRN ×5 (02:20→22:11)
[2018-10-07] MEDS: HYDROmorphone 2 MG/1 ML VIAL IV PRN ×5 (02:24→22:18)
[2018-10-07 04:36] LABS: Basophils % 0.7 % (0.0-0.8); Eosinophils # 0.4 10*3/uL (0.0-0.87); Eosinophils % 11.9 % (0.00-10.9); Hematocrit 28.4 VOL% (35.7-47.0); Hemoglobin 8.9 GM/DL (12.0-16.0); Immature Granulocytes % 0.3 %; Immature Granulocytes Absolute 0.01 #; Lymphocytes # 0.5 10*3/uL (1.4-4.0); Lymphocytes % 15.8 % (21.3-54.2); Mean Corpuscular HGB Conc 31.3 GM/DL (32-36); Mean Corpuscular Hemoglobin 28 PG (27-34); Mean Corpuscular Volume 90.2 FL (87-102); Mean Platelet Volume 11.9 FL (9.6-12.0); Monocytes # 0.7 10*3/uL (0.11-0.8); Monocytes % 21.5 % (1.7-12.7); Neutrophils # 1.5 10*3/uL (1.4-7.4); Neutrophils % 49.8 % (38.7-73.9); Platelet Count 98 T/CUMM (130-400); Red Blood Count 3.15 MC/CUMM (3.8-5.5); Red Cell Distribution Width 15.3 % (9.3-17.3)
[2018-10-07 04:57] LABS: Albumin 2.3 G/DL (3.4-5.0); Bilirubin,Total 0.6 MG/DL (0.2-1.0); Calcium 8.4 MG/DL (8.5-10.1); Osmolality,Calculated 277.7 MOS/KG (273-304); Potassium 3.8 MMOL/L (3.5-5.1); Total Protein 5.3 G/DL (6.4-8.3)
[2018-10-07 05:39] LABS: Band Neutrophils 4 % (0-10); Eosinophils 9 % (0-10); Lymphocytes 20 % (20-55); Segmented Neutrophils 49 % (50-85); Total Cells Counted 100
[2018-10-07 05:40] LABS: Platelet Estimate Decreased
[2018-10-07] MEDS: DIPHENOXYLATE/ATROPINE 2.5-0.025 MG TABLET PO SCH ×3 (06:30→22:07)
[2018-10-07] MEDS: INSULIN REGULAR 100 UNIT/ML SUBCUT SCH ×3 (06:31→20:03)
[2018-10-07] MEDS: ONDANSETRON 4 MG TABLET PO SCH ×4 (06:40→23:41)
[2018-10-07] MEDS: MOMETASONE 220 MCG/PUFF INHALER 14 DOSE INH SCH ×2 (09:52→20:10)
[2018-10-07] MEDS: LEVOTHYROXINE 100 MCG VIAL IV SCH (09:53)
[2018-10-07] MEDS: ASCORBIC ACID 500 MG TABLET PO SCH (09:53)
[2018-10-07] MEDS: ASPIRIN EC 325 MG TABLET PO SCH (09:53)
[2018-10-07] MEDS: CETIRIZINE 10 MG TABLET PO SCH (09:53)
[2018-10-07] MEDS: PANTOPRAZOLE 40 MG VIAL IV SCH (09:55)
[2018-10-07] MEDS ORDERED: THYROID 60 MG TABLET PO ONE (10:05)
[2018-10-07] MEDS: FAT EMULSION 20% 250 ML IV SCH (19:55)
[2018-10-07] MEDS: TRACE ELEMENTS IV SCH (19:56)
[2018-10-07] MEDS: MULTIVITAMIN IV SCH (19:56)
[2018-10-07] MEDS: MAGNESIUM SULF IV SCH (19:56)
[2018-10-07] MEDS: [UNRECOGNIZED DRUG - OTHER] IV SCH (19:56)
[2018-10-07] MEDS: SIMVASTATIN 40 MG TABLET PO SCH (20:10)
[2018-10-08] MEDS: INSULIN REGULAR 100 UNIT/ML SUBCUT SCH ×4 (02:23→19:15)
[2018-10-08] MEDS: HYOSCYAMINE 0.125 MG TABLET SL SCH ×6 (02:24→21:24)
[2018-10-08] MEDS: ONDANSETRON 4 MG/2 ML VIAL IV PRN ×5 (02:24→20:01)
[2018-10-08] MEDS: HYDROmorphone 2 MG/1 ML VIAL IV PRN ×5 (02:28→20:01)
[2018-10-08] MEDS: DIPHENOXYLATE/ATROPINE 2.5-0.025 MG TABLET PO SCH ×3 (06:19→21:23)
[2018-10-08] MEDS: THYROID 60 MG TABLET PO SCH (06:19)
[2018-10-08] MEDS: ONDANSETRON 4 MG TABLET PO SCH ×3 (06:26→19:56)
[2018-10-08] MEDS ORDERED: SCOPOLAMINE 1.5 MG PATCH TRANSDERM SCH (09:30)
[2018-10-08] MEDS: LOSARTAN 25 MG TABLET PO SCH (11:48)
[2018-10-08] MEDS: ASPIRIN EC 325 MG TABLET PO SCH (11:51)
[2018-10-08] MEDS: MOMETASONE 220 MCG/PUFF INHALER 14 DOSE INH SCH ×2 (11:51→21:23)
[2018-10-08] MEDS: CETIRIZINE 10 MG TABLET PO SCH (11:51)
[2018-10-08] MEDS: ASCORBIC ACID 500 MG TABLET PO SCH (11:51)
[2018-10-08] MEDS: FAT EMULSION 20% 250 ML IV SCH (16:13)
[2018-10-08] MEDS: SIMVASTATIN 40 MG TABLET PO SCH (21:23)
[2018-10-09] MEDS: ONDANSETRON 4 MG TABLET PO SCH ×4 (00:14→18:36)
[2018-10-09] MEDS: HYDROmorphone 2 MG/1 ML VIAL IV PRN ×6 (00:15→22:07)
[2018-10-09] MEDS: ONDANSETRON 4 MG/2 ML VIAL IV PRN ×6 (00:20→22:06)
[2018-10-09] MEDS: INSULIN REGULAR 100 UNIT/ML SUBCUT SCH ×4 (00:26→18:34)
[2018-10-09] MEDS: [UNRECOGNIZED DRUG - OTHER] IV SCH (01:54)
[2018-10-09] MEDS: MULTIVITAMIN IV SCH (01:54)
[2018-10-09] MEDS: MAGNESIUM SULF IV SCH (01:54)
[2018-10-09] MEDS: TRACE ELEMENTS IV SCH (01:54)
[2018-10-09] MEDS: HYOSCYAMINE 0.125 MG TABLET SL SCH ×6 (02:04→21:55)
[2018-10-09] MEDS: DIPHENOXYLATE/ATROPINE 2.5-0.025 MG TABLET PO SCH ×3 (06:21→21:56)
[2018-10-09] MEDS: THYROID 60 MG TABLET PO SCH (06:21)
[2018-10-09 06:38] LABS: Calcium 8.2 MG/DL (8.5-10.1); Osmolality,Calculated 276.8 MOS/KG (273-304); Potassium 3.9 MMOL/L (3.5-5.1)
[2018-10-09] MEDS: ASPIRIN EC 325 MG TABLET PO SCH (08:24)
[2018-10-09] MEDS: LOSARTAN 25 MG TABLET PO SCH (08:30)
[2018-10-09] MEDS: CETIRIZINE 10 MG TABLET PO SCH (08:30)
[2018-10-09] MEDS: ASCORBIC ACID 500 MG TABLET PO SCH (08:30)
[2018-10-09] MEDS: MOMETASONE 220 MCG/PUFF INHALER 14 DOSE INH SCH ×2 (08:31→21:55)
[2018-10-09] MEDS ORDERED: PANTOPRAZOLE 40 MG VIAL IV ONE (09:45)
[2018-10-09] MEDS: SIMVASTATIN 40 MG TABLET PO SCH (21:55)
[2018-10-10] MEDS: INSULIN REGULAR 100 UNIT/ML SUBCUT SCH ×3 (00:54→13:12)
[2018-10-10] MEDS: ONDANSETRON 4 MG TABLET PO SCH ×3 (01:05→13:13)
[2018-10-10] MEDS: HYDROmorphone 2 MG/1 ML VIAL IV PRN ×4 (01:35→13:16)
[2018-10-10] MEDS: HYOSCYAMINE 0.125 MG TABLET SL SCH ×4 (01:35→14:03)
[2018-10-10] MEDS: ONDANSETRON 4 MG/2 ML VIAL IV PRN ×4 (01:36→13:15)
[2018-10-10] MEDS: THYROID 60 MG TABLET PO SCH (06:34)
[2018-10-10] MEDS: DIPHENOXYLATE/ATROPINE 2.5-0.025 MG TABLET PO SCH (06:35)
[2018-10-10] MEDS: TRACE ELEMENTS IV SCH (06:35)
[2018-10-10] MEDS: MULTIVITAMIN IV SCH (06:35)
[2018-10-10] MEDS: [UNRECOGNIZED DRUG - OTHER] IV SCH (06:35)
[2018-10-10] MEDS: MAGNESIUM SULF IV SCH (06:35)
[2018-10-10] MEDS: LOSARTAN 25 MG TABLET PO SCH (09:47)
[2018-10-10] MEDS: CETIRIZINE 10 MG TABLET PO SCH (09:47)
[2018-10-10] MEDS: ASCORBIC ACID 500 MG TABLET PO SCH (09:47)
[2018-10-10] MEDS: ASPIRIN EC 325 MG TABLET PO SCH (09:47)
[2018-10-10] MEDS: MOMETASONE 220 MCG/PUFF INHALER 14 DOSE INH SCH (09:47)
[2018-10-10 11:57] VITALS: BP 121/58
== END 2018-10-10 14:02 | disposition home health service (06) | DRG 391 ==
LOC: N.ED 12:56 → N.4E 18:18 → SUATTDRO 18:18 → N.4E 19:10
PROVIDERS: ADMIT Internal Medicine Cardiovascular Disease; ATTEND Internal Medicine

== ENCOUNTER 2018-10-11 08:38 | Inpatient (IN) ==
[2018-10-11] MEDS ORDERED: ONDANSETRON 4 MG/2 ML VIAL IV STA (09:22)
[2018-10-11] MEDS ORDERED: HYDROmorphone 2 MG/1 ML VIAL IV STA (10:03)
[2018-10-11 10:04] LABS: Basophils % 0.6 % (0.0-0.8); Eosinophils % 0.9 % (0.00-10.9); Hematocrit 33.8 VOL% (35.7-47.0); Immature Granulocytes % 0.4 %; Immature Granulocytes Absolute 0.02 #; Lymphocytes # 0.3 10*3/uL (1.4-4.0); Lymphocytes % 5.8 % (21.3-54.2); Mean Corpuscular HGB Conc 32.5 GM/DL (32-36); Mean Corpuscular Hemoglobin 29 PG (27-34); Mean Corpuscular Volume 88.3 FL (87-102); Mean Platelet Volume 11.2 FL (9.6-12.0); Monocytes # 0.4 10*3/uL (0.11-0.8); Monocytes % 8.6 % (1.7-12.7); Neutrophils # 3.9 10*3/uL (1.4-7.4); Neutrophils % 83.7 % (38.7-73.9); Platelet Count 129 T/CUMM (130-400); Red Blood Count 3.83 MC/CUMM (3.8-5.5); Red Cell Distribution Width 15.1 % (9.3-17.3); White Blood Count 4.7 T/CUMM (4-12)
[2018-10-11] MEDS ORDERED: HYDROmorphone 2 MG/1 ML VIAL ONE (10:05)
[2018-10-11] MEDS: LACTATED RINGERS 1,000 ML IV SCH (10:27)
[2018-10-11 10:35] LABS: Bilirubin,Total 1.1 MG/DL (0.2-1.0); Calcium 8.8 MG/DL (8.5-10.1); Osmolality,Calculated 273.4 MOS/KG (273-304); Potassium 4.4 MMOL/L (3.5-5.1); Total Protein 6.9 G/DL (6.4-8.3)
[2018-10-11] MEDS ORDERED: PROMETHAZINE 25 MG SUPP RECTAL ONE (10:47)
[2018-10-11] MEDS ORDERED: GLUCAGON 1 MG VIAL IM PRN (11:03)
[2018-10-11] MEDS ORDERED: DEXTROSE 50% 25 GM/50 ML VIAL IV PRN (11:03)
[2018-10-11] MEDS ORDERED: hydrALAZINE 20 MG/1 ML VIAL IV PRN (11:24)
[2018-10-11 11:29] LABS: Apearance,Urine Slightly Hazy (Clear); Bilirubin,Urine Negative (Negative); Blood, Urine Negative (Negative); Glucose,Urine (UA) Negative (Negative); Hyaline Casts,Urine 7 /LPF (0-3); Ketones,Urine Negative (Negative); Mucus,Urine Occasional /LPF (Occasional); Nitrite,Urine Negative (Negative); Protein,Urine Negative; RBC,Urine 15 /HPF (0-4); Urine Color Yellow (Yellow); Urine Specific Gravity 1.018 (1.001-1.035); WBC,Urine 15 /HPF (0-6)
[2018-10-11] MEDS: PANTOPRAZOLE 40 MG VIAL IV SCH (13:37)
[2018-10-11] MEDS: INSULIN REGULAR 100 UNIT/ML SUBCUT SCH ×2 (15:24→18:43)
[2018-10-11] MEDS: HYDROmorphone 2 MG/1 ML VIAL IV PRN ×2 (16:14→20:27)
[2018-10-11] MEDS: FAT EMULSION 20% 250 ML IV SCH (16:16)
[2018-10-11] MEDS: [UNRECOGNIZED DRUG - OTHER] IV SCH (16:16)
[2018-10-11] MEDS: TRACE ELEMENTS IV SCH (16:16)
[2018-10-11] MEDS: MAGNESIUM SULF IV SCH (16:16)
[2018-10-11] MEDS: MULTIVITAMIN IV SCH (16:16)
[2018-10-11] MEDS ORDERED: DEXTROSE 10% 1,000 ML IV PRN (17:00)
[2018-10-11] MEDS: PROMETHAZINE 25 MG SUPP RECTAL PRN (22:51)
[2018-10-12] MEDS: HYDROmorphone 2 MG/1 ML VIAL IV PRN ×4 (02:52→22:08)
[2018-10-12] MEDS: INSULIN REGULAR 100 UNIT/ML SUBCUT SCH ×5 (02:58→20:47)
[2018-10-12 03:14] LABS: Basophils % 0.3 % (0.0-0.8); Eosinophils # 0.2 10*3/uL (0.0-0.87); Eosinophils % 2.7 % (0.00-10.9); Hemoglobin 9.9 GM/DL (12.0-16.0); Immature Granulocytes % 0.3 %; Immature Granulocytes Absolute 0.02 #; Lymphocytes # 0.7 10*3/uL (1.4-4.0); Mean Corpuscular HGB Conc 31.9 GM/DL (32-36); Mean Corpuscular Hemoglobin 28 PG (27-34); Mean Corpuscular Volume 87.6 FL (87-102); Mean Platelet Volume 11.3 FL (9.6-12.0); Monocytes % 16.7 % (1.7-12.7); Platelet Count 157 T/CUMM (130-400); Red Blood Count 3.54 MC/CUMM (3.8-5.5); Red Cell Distribution Width 15.3 % (9.3-17.3); White Blood Count 5.9 T/CUMM (4-12)
[2018-10-12 03:27] LABS: Albumin 2.7 G/DL (3.4-5.0); Bilirubin,Total 0.6 MG/DL (0.2-1.0); Calcium 8.6 MG/DL (8.5-10.1); Osmolality,Calculated 277.7 MOS/KG (273-304); Potassium 3.6 MMOL/L (3.5-5.1); Total Protein 6.1 G/DL (6.4-8.3)
[2018-10-12 04:54] LABS: Band Neutrophils 1 % (0-10); Eosinophils 1 % (0-10); Hypochromasia 2+; Lymphocytes 11 % (20-55); Platelet Estimate Decreased; Segmented Neutrophils 73 % (50-85); Total Cells Counted 100
[2018-10-12] MEDS: PANTOPRAZOLE 40 MG VIAL IV SCH (09:44)
[2018-10-12] MEDS: PROMETHAZINE 25 MG SUPP RECTAL PRN (09:46)
[2018-10-12] MEDS ORDERED: GRANISETRON 1 MG/1 ML VIAL IV ONE (10:30)
[2018-10-12] MEDS ORDERED: PROMETHAZINE 25 MG SUPP RECTAL PRN (10:42)
[2018-10-12] MEDS: LACTATED RINGERS 1,000 ML IV SCH (11:59)
[2018-10-12] MEDS: HYOSCYAMINE 0.125 MG TABLET PO SCH ×3 (12:15→20:11)
[2018-10-12] MEDS: SCOPOLAMINE 1.5 MG PATCH TRANSDERM SCH (12:15)
[2018-10-12] MEDS: PROCHLORPERAZINE 10 MG TABLET PO PRN ×2 (15:22→23:43)
[2018-10-12] MEDS: TRACE ELEMENTS IV SCH (18:09)
[2018-10-12] MEDS: MAGNESIUM SULF IV SCH (18:09)
[2018-10-12] MEDS: [UNRECOGNIZED DRUG - OTHER] IV SCH (18:09)
[2018-10-12] MEDS: MULTIVITAMIN IV SCH (18:09)
[2018-10-12] MEDS: FAT EMULSION 20% 250 ML IV SCH (18:10)
[2018-10-12] MEDS: PROMETHAZINE 12.5 MG SUPP RECTAL PRN (18:14)
[2018-10-13] MEDS: HYDROmorphone 2 MG/1 ML VIAL IV PRN ×4 (03:16→20:42)
[2018-10-13] MEDS: PROMETHAZINE 12.5 MG SUPP RECTAL PRN ×2 (03:45→09:46)
[2018-10-13] MEDS: HYOSCYAMINE 0.125 MG TABLET PO SCH ×6 (04:34→19:06)
[2018-10-13 05:10] LABS: Basophils % 0.3 % (0.0-0.8); Eosinophils # 0.2 10*3/uL (0.0-0.87); Eosinophils % 2.6 % (0.00-10.9); Hematocrit 32.7 VOL% (35.7-47.0); Hemoglobin 10.6 GM/DL (12.0-16.0); Immature Granulocytes % 0.5 %; Immature Granulocytes Absolute 0.03 #; Lymphocytes # 0.5 10*3/uL (1.4-4.0); Lymphocytes % 8.5 % (21.3-54.2); Mean Corpuscular HGB Conc 32.4 GM/DL (32-36); Mean Corpuscular Hemoglobin 29 PG (27-34); Mean Corpuscular Volume 88.4 FL (87-102); Mean Platelet Volume 11.5 FL (9.6-12.0); Monocytes # 0.8 10*3/uL (0.11-0.8); Monocytes % 13.2 % (1.7-12.7); Neutrophils # 4.3 10*3/uL (1.4-7.4); Neutrophils % 74.9 % (38.7-73.9); Platelet Count 169 T/CUMM (130-400); Red Cell Distribution Width 15.2 % (9.3-17.3); White Blood Count 5.8 T/CUMM (4-12)
[2018-10-13 05:29] LABS: Albumin 2.9 G/DL (3.4-5.0); Calcium 8.5 MG/DL (8.5-10.1); Osmolality,Calculated 270.2 MOS/KG (273-304); Potassium 3.4 MMOL/L (3.5-5.1); Prealbumin 16.1 MG/DL (20-40); Total Protein 6.5 G/DL (6.4-8.3)
[2018-10-13] MEDS: PROCHLORPERAZINE 10 MG TABLET PO PRN (08:28)
[2018-10-13] MEDS: PANTOPRAZOLE 40 MG VIAL IV SCH (08:28)
[2018-10-13] MEDS: LOSARTAN 25 MG TABLET PO SCH (08:28)
[2018-10-13] MEDS: INSULIN REGULAR 100 UNIT/ML SUBCUT SCH ×3 (09:07→18:55)
[2018-10-13] MEDS: LEVOTHYROXINE 100 MCG VIAL IV SCH (09:46)
[2018-10-13] MEDS: PROMETHAZINE 25 MG/1 ML VIAL IM PRN ×3 (10:29→20:37)
[2018-10-13] MEDS: fentaNYL 25 MCG/HR PATCH TRANSDERM SCH (10:29)
[2018-10-13] MEDS: FAT EMULSION 20% 250 ML IV SCH (14:40)
[2018-10-13] MEDS ORDERED: POTASSIUM CHLORIDE RIDER 10 MEQ in PREMIX 1 EACH IV PRN (15:00)
[2018-10-13] MEDS ORDERED: POTASSIUM CHLORIDE 20 MEQ TABLET PO PRN (15:02)
[2018-10-13] MEDS: LOPERAMIDE 2 MG CAPSULE PO PRN (15:22)
[2018-10-13] MEDS: TRACE ELEMENTS IV SCH (22:12)
[2018-10-13] MEDS: MULTIVITAMIN IV SCH (22:12)
[2018-10-13] MEDS: MAGNESIUM SULF IV SCH (22:12)
[2018-10-13] MEDS: [UNRECOGNIZED DRUG - OTHER] IV SCH (22:12)
[2018-10-14] MEDS: PROMETHAZINE 25 MG/1 ML VIAL IM PRN ×3 (01:42→10:55)
[2018-10-14] MEDS: HYDROmorphone 2 MG/1 ML VIAL IV PRN ×6 (01:44→23:16)
[2018-10-14] MEDS: HYOSCYAMINE 0.125 MG TABLET PO SCH ×7 (01:51→23:15)
[2018-10-14] MEDS: INSULIN REGULAR 100 UNIT/ML SUBCUT SCH ×5 (01:52→23:14)
[2018-10-14] MEDS: LEVOTHYROXINE 100 MCG VIAL IV SCH (06:27)
[2018-10-14] MEDS: LOSARTAN 25 MG TABLET PO SCH (09:32)
[2018-10-14] MEDS: PANTOPRAZOLE 40 MG VIAL IV SCH (09:32)
[2018-10-14] MEDS: CETIRIZINE 10 MG TABLET PO SCH (14:55)
[2018-10-14] MEDS: ONDANSETRON 4 MG/2 ML VIAL IV SCH ×3 (14:55→23:15)
[2018-10-14] MEDS: METOCLOPRAMIDE 10 MG/2 ML VIAL IV SCH ×2 (14:55→23:15)
[2018-10-14] MEDS: FAT EMULSION 20% 250 ML IV SCH (14:55)
[2018-10-15] MEDS: MAGNESIUM SULF IV SCH (02:54)
[2018-10-15] MEDS: TRACE ELEMENTS IV SCH (02:54)
[2018-10-15] MEDS: [UNRECOGNIZED DRUG - OTHER] IV SCH (02:54)
[2018-10-15] MEDS: MULTIVITAMIN IV SCH (02:54)
[2018-10-15] MEDS: HYDROmorphone 2 MG/1 ML VIAL IV PRN ×5 (02:55→20:35)
[2018-10-15] MEDS: ONDANSETRON 4 MG/2 ML VIAL IV SCH ×5 (02:55→20:32)
[2018-10-15] MEDS: HYOSCYAMINE 0.125 MG TABLET PO SCH ×5 (03:01→20:31)
[2018-10-15] MEDS: METOCLOPRAMIDE 10 MG/2 ML VIAL IV SCH ×3 (06:39→22:33)
[2018-10-15] MEDS: LEVOTHYROXINE 100 MCG VIAL IV SCH (06:41)
[2018-10-15] MEDS: LOSARTAN 25 MG TABLET PO SCH (10:37)
[2018-10-15] MEDS: CETIRIZINE 10 MG TABLET PO SCH (10:37)
[2018-10-15] MEDS: SCOPOLAMINE 1.5 MG PATCH TRANSDERM SCH (10:38)
[2018-10-15] MEDS: PANTOPRAZOLE 40 MG VIAL IV SCH (10:39)
[2018-10-15] MEDS: FAT EMULSION 20% 250 ML IV SCH (16:35)
[2018-10-15] MEDS: INSULIN REGULAR 100 UNIT/ML SUBCUT SCH ×4 (16:40→22:33)
[2018-10-16] MEDS: HYOSCYAMINE 0.125 MG TABLET PO SCH ×6 (01:36→20:00)
[2018-10-16] MEDS: ONDANSETRON 4 MG/2 ML VIAL IV SCH ×6 (01:36→20:00)
[2018-10-16] MEDS: HYDROmorphone 2 MG/1 ML VIAL IV PRN ×5 (01:49→20:02)
[2018-10-16 04:42] LABS: Osmolality,Calculated 270.4 MOS/KG (273-304)
[2018-10-16] MEDS: LEVOTHYROXINE 100 MCG VIAL IV SCH (06:00)
[2018-10-16] MEDS: METOCLOPRAMIDE 10 MG/2 ML VIAL IV SCH ×2 (06:02→15:22)
[2018-10-16] MEDS: TRACE ELEMENTS IV SCH (06:37)
[2018-10-16] MEDS: [UNRECOGNIZED DRUG - OTHER] IV SCH (06:37)
[2018-10-16] MEDS: MULTIVITAMIN IV SCH (06:37)
[2018-10-16] MEDS: MAGNESIUM SULF IV SCH (06:37)
[2018-10-16] MEDS: INSULIN REGULAR 100 UNIT/ML SUBCUT SCH ×3 (09:09→17:32)
[2018-10-16] MEDS: fentaNYL 25 MCG/HR PATCH TRANSDERM SCH (09:10)
[2018-10-16] MEDS: LOSARTAN 25 MG TABLET PO SCH (09:10)
[2018-10-16] MEDS: CETIRIZINE 10 MG TABLET PO SCH (09:10)
[2018-10-16] MEDS: PANTOPRAZOLE 40 MG VIAL IV SCH (09:12)
[2018-10-16] MEDS: LOPERAMIDE 2 MG CAPSULE PO PRN (10:51)
[2018-10-16] MEDS: FAT EMULSION 20% 250 ML IV SCH (15:20)
[2018-10-17] MEDS: HYOSCYAMINE 0.125 MG TABLET PO SCH ×7 (00:42→22:57)
[2018-10-17] MEDS: ONDANSETRON 4 MG/2 ML VIAL IV SCH ×7 (00:43→23:03)
[2018-10-17] MEDS: HYDROmorphone 2 MG/1 ML VIAL IV PRN ×6 (00:46→22:58)
[2018-10-17] MEDS: METOCLOPRAMIDE 10 MG/2 ML VIAL IV SCH ×4 (00:49→22:55)
[2018-10-17] MEDS: LEVOTHYROXINE 100 MCG VIAL IV SCH (06:01)
[2018-10-17] MEDS: [UNRECOGNIZED DRUG - OTHER] IV SCH (06:12)
[2018-10-17] MEDS: TRACE ELEMENTS IV SCH (06:12)
[2018-10-17] MEDS: MULTIVITAMIN IV SCH (06:12)
[2018-10-17] MEDS: MAGNESIUM SULF IV SCH (06:12)
[2018-10-17] MEDS: INSULIN REGULAR 100 UNIT/ML SUBCUT SCH ×4 (07:17→19:06)
[2018-10-17] MEDS: LOSARTAN 25 MG TABLET PO SCH (08:25)
[2018-10-17] MEDS: CETIRIZINE 10 MG TABLET PO SCH (08:25)
[2018-10-17] MEDS: PANTOPRAZOLE 40 MG VIAL IV SCH (08:26)
[2018-10-17] MEDS: LOPERAMIDE 2 MG CAPSULE PO PRN (11:46)
[2018-10-17] MEDS: FAT EMULSION 20% 250 ML IV SCH (15:33)
[2018-10-18] MEDS: INSULIN REGULAR 100 UNIT/ML SUBCUT SCH ×4 (01:03→18:29)
[2018-10-18] MEDS: ONDANSETRON 4 MG/2 ML VIAL IV SCH ×6 (03:13→23:48)
[2018-10-18] MEDS: HYDROmorphone 2 MG/1 ML VIAL IV PRN ×6 (03:14→23:50)
[2018-10-18] MEDS: HYOSCYAMINE 0.125 MG TABLET PO SCH ×6 (03:17→23:48)
[2018-10-18 06:22] LABS: Basophils % 0.7 % (0.0-0.8); Eosinophils # 0.5 10*3/uL (0.0-0.87); Eosinophils % 15.4 % (0.00-10.9); Hematocrit 25.9 VOL% (35.7-47.0); Hemoglobin 8.3 GM/DL (12.0-16.0); Immature Granulocytes % 0.7 %; Immature Granulocytes Absolute 0.02 #; Lymphocytes # 0.4 10*3/uL (1.4-4.0); Lymphocytes % 13.4 % (21.3-54.2); Mean Corpuscular Hemoglobin 29 PG (27-34); Mean Platelet Volume 10.7 FL (9.6-12.0); Monocytes # 0.7 10*3/uL (0.11-0.8); Monocytes % 22.3 % (1.7-12.7); Neutrophils # 1.5 10*3/uL (1.4-7.4); Neutrophils % 47.5 % (38.7-73.9); Platelet Count 130 T/CUMM (130-400); Red Blood Count 2.91 MC/CUMM (3.8-5.5); Red Cell Distribution Width 15.6 % (9.3-17.3); White Blood Count 3.1 T/CUMM (4-12)
[2018-10-18 06:33] LABS: Calcium 8.2 MG/DL (8.5-10.1)
[2018-10-18 06:47] LABS: Anisocytosis 1+; Band Neutrophils 1 % (0-10); Eosinophils 17 % (0-10); Lymphocytes 13 % (20-55); Macrocytosis 1+; Platelet Estimate Adequate; Segmented Neutrophils 54 % (50-85); Total Cells Counted 100
[2018-10-18] MEDS: METOCLOPRAMIDE 10 MG/2 ML VIAL IV SCH ×3 (07:14→21:58)
[2018-10-18] MEDS: LEVOTHYROXINE 100 MCG VIAL IV SCH (07:15)
[2018-10-18] MEDS: SCOPOLAMINE 1.5 MG PATCH TRANSDERM SCH (08:52)
[2018-10-18] MEDS: PANTOPRAZOLE 40 MG VIAL IV SCH (08:52)
[2018-10-18] MEDS: CETIRIZINE 10 MG TABLET PO SCH (08:52)
[2018-10-18] MEDS: LOSARTAN 25 MG TABLET PO SCH (08:52)
[2018-10-18] MEDS: TRACE ELEMENTS IV SCH (13:39)
[2018-10-18] MEDS: [UNRECOGNIZED DRUG - OTHER] IV SCH (13:39)
[2018-10-18] MEDS: MAGNESIUM SULF IV SCH (13:39)
[2018-10-18] MEDS: MULTIVITAMIN IV SCH (13:39)
[2018-10-18] MEDS: FAT EMULSION 20% 250 ML IV SCH (15:52)
[2018-10-19] MEDS: INSULIN REGULAR 100 UNIT/ML SUBCUT SCH ×4 (01:17→18:28)
[2018-10-19] MEDS: HYDROmorphone 2 MG/1 ML VIAL IV PRN ×4 (03:34→22:49)
[2018-10-19] MEDS: ONDANSETRON 4 MG/2 ML VIAL IV SCH ×7 (03:36→22:48)
[2018-10-19] MEDS: HYOSCYAMINE 0.125 MG TABLET PO SCH ×6 (03:38→22:45)
[2018-10-19 06:02] LABS: Basophils % 0.6 % (0.0-0.8); Eosinophils # 0.5 10*3/uL (0.0-0.87); Eosinophils % 13.2 % (0.00-10.9); Hematocrit 25.5 VOL% (35.7-47.0); Hemoglobin 8.3 GM/DL (12.0-16.0); Immature Granulocytes % 0.3 %; Immature Granulocytes Absolute 0.01 #; Lymphocytes # 0.4 10*3/uL (1.4-4.0); Lymphocytes % 12.6 % (21.3-54.2); Mean Corpuscular HGB Conc 32.5 GM/DL (32-36); Mean Corpuscular Hemoglobin 29 PG (27-34); Mean Corpuscular Volume 88.5 FL (87-102); Mean Platelet Volume 11.2 FL (9.6-12.0); Monocytes # 0.6 10*3/uL (0.11-0.8); Monocytes % 18.7 % (1.7-12.7); Neutrophils # 1.9 10*3/uL (1.4-7.4); Neutrophils % 54.6 % (38.7-73.9); Platelet Count 138 T/CUMM (130-400); Red Blood Count 2.88 MC/CUMM (3.8-5.5); Red Cell Distribution Width 15.7 % (9.3-17.3); White Blood Count 3.4 T/CUMM (4-12)
[2018-10-19 06:15] LABS: Calcium 8.1 MG/DL (8.5-10.1); Osmolality,Calculated 272.1 MOS/KG (273-304); Potassium 4.1 MMOL/L (3.5-5.1)
[2018-10-19] MEDS: METOCLOPRAMIDE 10 MG/2 ML VIAL IV SCH ×3 (06:25→22:45)
[2018-10-19] MEDS: LEVOTHYROXINE 100 MCG VIAL IV SCH (06:27)
[2018-10-19 08:37] LABS: Band Neutrophils 1 % (0-10); Eosinophils 11 % (0-10); Lymphocytes 13 % (20-55); Platelet Estimate Adequate; Segmented Neutrophils 61 % (50-85); Total Cells Counted 100
[2018-10-19 08:38] LABS: Anisocytosis 1+
[2018-10-19] MEDS: LOPERAMIDE 2 MG CAPSULE PO PRN (08:49)
[2018-10-19] MEDS: fentaNYL 25 MCG/HR PATCH TRANSDERM SCH (08:54)
[2018-10-19] MEDS: PANTOPRAZOLE 40 MG VIAL IV SCH (08:54)
[2018-10-19] MEDS: CETIRIZINE 10 MG TABLET PO SCH (08:55)
[2018-10-19] MEDS: LOSARTAN 25 MG TABLET PO SCH (08:55)
[2018-10-19] MEDS: FAT EMULSION 20% 250 ML IV SCH (13:56)
[2018-10-19] MEDS ORDERED: ALPRAZolam 0.25 MG TABLET PO ONE (14:32)
[2018-10-19] MEDS: [UNRECOGNIZED DRUG - OTHER] IV SCH ×2 (17:14→18:44)
[2018-10-19] MEDS: MAGNESIUM SULF IV SCH ×2 (17:14→18:44)
[2018-10-19] MEDS: TRACE ELEMENTS IV SCH ×2 (17:14→18:44)
[2018-10-19] MEDS: MULTIVITAMIN IV SCH ×2 (17:14→18:44)
[2018-10-20] MEDS: INSULIN REGULAR 100 UNIT/ML SUBCUT SCH ×6 (00:36→23:56)
[2018-10-20] MEDS: ONDANSETRON 4 MG/2 ML VIAL IV SCH ×6 (03:04→23:57)
[2018-10-20] MEDS: HYOSCYAMINE 0.125 MG TABLET PO SCH ×6 (03:06→21:59)
[2018-10-20 04:32] LABS: Eosinophils # 0.4 10*3/uL (0.0-0.87); Eosinophils % 11.7 % (0.00-10.9); Hematocrit 24.9 VOL% (35.7-47.0); Immature Granulocytes % 0.3 %; Immature Granulocytes Absolute 0.01 #; Lymphocytes # 0.5 10*3/uL (1.4-4.0); Mean Corpuscular HGB Conc 32.1 GM/DL (32-36); Mean Corpuscular Hemoglobin 29 PG (27-34); Mean Corpuscular Volume 88.9 FL (87-102); Mean Platelet Volume 10.9 FL (9.6-12.0); Monocytes # 0.6 10*3/uL (0.11-0.8); Monocytes % 19.5 % (1.7-12.7); Neutrophils # 1.6 10*3/uL (1.4-7.4); Neutrophils % 51.5 % (38.7-73.9); Platelet Count 133 T/CUMM (130-400); Red Cell Distribution Width 15.7 % (9.3-17.3); White Blood Count 3.1 T/CUMM (4-12)
[2018-10-20 04:58] LABS: Calcium 8.1 MG/DL (8.5-10.1)
[2018-10-20 04:59] LABS: Eosinophils 18 % (0-10); Hypochromasia 1+; Lymphocytes 14 % (20-55); Ovalocytes Slight; Platelet Estimate Normal; Segmented Neutrophils 56 % (50-85); Total Cells Counted 100
[2018-10-20] MEDS: METOCLOPRAMIDE 10 MG/2 ML VIAL IV SCH ×3 (06:36→21:46)
[2018-10-20] MEDS: LEVOTHYROXINE 100 MCG VIAL IV SCH (06:37)
[2018-10-20] MEDS: HYDROmorphone 2 MG/1 ML VIAL IV PRN ×5 (06:39→23:58)
[2018-10-20] MEDS: CETIRIZINE 10 MG TABLET PO SCH (09:14)
[2018-10-20] MEDS: LOSARTAN 25 MG TABLET PO SCH (09:14)
[2018-10-20] MEDS: PANTOPRAZOLE 40 MG VIAL IV SCH (09:15)
[2018-10-20] MEDS: FAT EMULSION 20% 250 ML IV SCH (15:31)
[2018-10-20] MEDS: MAGNESIUM SULF IV SCH (19:32)
[2018-10-20] MEDS: [UNRECOGNIZED DRUG - OTHER] IV SCH (19:32)
[2018-10-20] MEDS: TRACE ELEMENTS IV SCH (19:32)
[2018-10-20] MEDS: MULTIVITAMIN IV SCH (19:32)
[2018-10-21] MEDS: HYOSCYAMINE 0.125 MG TABLET PO SCH ×2 (04:03→06:03)
[2018-10-21] MEDS: HYDROmorphone 2 MG/1 ML VIAL IV PRN ×2 (04:04→08:34)
[2018-10-21] MEDS: ONDANSETRON 4 MG/2 ML VIAL IV SCH ×2 (04:04→08:30)
[2018-10-21 05:47] LABS: Basophils % 0.5 % (0.0-0.8); Eosinophils # 0.4 10*3/uL (0.0-0.87); Eosinophils % 8.6 % (0.00-10.9); Hematocrit 25.6 VOL% (35.7-47.0); Hemoglobin 8.1 GM/DL (12.0-16.0); Immature Granulocytes % 0.5 %; Immature Granulocytes Absolute 0.02 #; Lymphocytes # 0.5 10*3/uL (1.4-4.0); Lymphocytes % 11.8 % (21.3-54.2); Mean Corpuscular HGB Conc 31.6 GM/DL (32-36); Mean Corpuscular Hemoglobin 28 PG (27-34); Mean Corpuscular Volume 89.2 FL (87-102); Monocytes # 0.8 10*3/uL (0.11-0.8); Neutrophils # 2.4 10*3/uL (1.4-7.4); Neutrophils % 59.6 % (38.7-73.9); Platelet Count 141 T/CUMM (130-400); Red Blood Count 2.87 MC/CUMM (3.8-5.5); Red Cell Distribution Width 15.8 % (9.3-17.3); White Blood Count 4.1 T/CUMM (4-12)
[2018-10-21] MEDS: INSULIN REGULAR 100 UNIT/ML SUBCUT SCH (05:48)
[2018-10-21] MEDS: LEVOTHYROXINE 100 MCG VIAL IV SCH (06:02)
[2018-10-21] MEDS: METOCLOPRAMIDE 10 MG/2 ML VIAL IV SCH (06:03)
[2018-10-21 06:14] LABS: Potassium 4.2 MMOL/L (3.5-5.1)
[2018-10-21 06:37] LABS: Eosinophils 14 % (0-10); Hypochromasia 1+; Lymphocytes 12 % (20-55); Platelet Estimate Adequate; Segmented Neutrophils 60 % (50-85); Total Cells Counted 100
[2018-10-21] MEDS: PANTOPRAZOLE 40 MG VIAL IV SCH (08:32)
[2018-10-21] MEDS: CETIRIZINE 10 MG TABLET PO SCH (08:37)
[2018-10-21] MEDS: LOSARTAN 25 MG TABLET PO SCH (08:37)
[2018-10-21] MEDS: SCOPOLAMINE 1.5 MG PATCH TRANSDERM SCH (08:39)
[2018-10-21 09:00] VITALS: BP 118/58
[2018-10-22 16:26] LABS: Adenovirus F40/41 Negative (Negative); Astrovirus Negative (Negative); Cryptosporidium species Negative (Negative); Cyclospora cayetanensis Negative (Negative); Entamoeba histolytica Negative (Negative); Enteropathogenic E.coli (EPEC) Negative (Negative); Enterotoxigenic E. coli (ETEC) Negative (Negative); Norovirus GI/GII Negative (Negative); Plesiomonas shigelloides Negative (Negative); Salmonella species Negative (Negative); Sapovirus Negative (Negative); Shiga toxin producing E. coli Negative (Negative); Shigella/Enteroinvasive E.coli Negative (Negative); Specimen Source STOOL; Vibrio cholerae Negative (Negative); Yersinia enterocolitica Negative (Negative)
== END 2018-10-21 09:15 | disposition hospice, home (50) | DRG 391 ==
LOC: N.ED 08:38 → N.EDINP 08:38 → SUATTDRO 10:45 → N.4E 11:13
PROVIDERS: ADMIT Internal Medicine; ATTEND Hospitalist

== ENCOUNTER 2020-04-16 08:32 | Inpatient (IN) ==
[2020-04-16] MEDS ORDERED: methylPREDNISolone SOD SUC 125 MG/2 ML VIAL IV STA (09:20)
[2020-04-16] MEDS ORDERED: ALBUTEROL/IPRATROPIUM 3 ML NEB RESP TX STA (09:20)
[2020-04-16] MEDS ORDERED: ONDANSETRON 4 MG/2 ML VIAL IV STA ×2 (09:20→10:27)
[2020-04-16] MEDS ORDERED: AZITHROMYCIN INJ 500 MG in SODIUM CHLORIDE 0.9% 250 ML IV STA (09:20)
[2020-04-16 10:01] LABS: Basophils % 0.2 % (0.0-0.8); Eosinophils % 0.1 % (0.00-10.9); Hematocrit 28.7 VOL% (35.7-47.0); Hemoglobin 9.7 GM/DL (12.0-16.0); Immature Granulocytes % 0.5 %; Immature Granulocytes Absolute 0.07 #; Lymphocytes # 0.3 10*3/uL (1.4-4.0); Lymphocytes % 2.3 % (21.3-54.2); Mean Corpuscular HGB Conc 33.8 GM/DL (32-36); Mean Corpuscular Volume 88.3 FL (87-102); Mean Platelet Volume 9.9 FL (9.6-12.0); Monocytes % 6.6 % (1.7-12.7); Neutrophils % 90.3 % (38.7-73.9); Platelet Count 146 T/CUMM (130-400); Red Blood Count 3.25 MC/CUMM (3.8-5.5)
[2020-04-16 10:17] LABS: Apearance,Urine CLOUDY (Clear); Bacteria,Urine Many /HPF (Few); Blood, Urine Negative (Negative); Glucose,Urine (UA) Negative (Negative); Hyaline Casts,Urine 28 /LPF (0-3); Ketones,Urine Negative (Negative); Mucus,Urine Occasional /LPF (Occasional); Nitrite,Urine Negative (Negative); Protein,Urine 30 MG/DL; Squamous Epithelial Cell,Urine Occasional /HPF (0-10); Urine Color Amber (Yellow); Urine Specific Gravity 1.016 (1.001-1.035); WBC,Urine 47 /HPF (0-6)
[2020-04-16 10:19] LABS: Bilirubin,Urine Small mg/dL (Negative)
[2020-04-16] MEDS ORDERED: METOCLOPRAMIDE 10 MG/2 ML VIAL IV STA (10:27)
[2020-04-16] MEDS ORDERED: METOCLOPRAMIDE 10 MG/2 ML VIAL ONE (10:27)
[2020-04-16 10:29] LABS: Alanine Aminotransferase 44 U/L (13-56); Alkaline Phosphatase 792 U/L (45-117); Aspartate Amino Transferase 94 U/L (0-37); Blood Urea Nitrogen 36 MG/DL (7-18); Calcium 8.3 MG/DL (8.5-10.1); Estimated Glom Filtration Rate 0 ML/MIN; Ferritin 523.5 ng/ml (8-252); Glucose 110 MG/DL (74-106); Osmolality,Calculated 259.5 MOS/KG (273-304); Total Protein 6.1 G/DL (6.4-8.3); Troponin I < 0.015 NG/ML (0.00-0.045)
[2020-04-16] MEDS ORDERED: LEVOFLOXACIN INJ 750 MG in PREMIX 1 EACH IV STA (10:29)
[2020-04-16 10:30] LABS: INR 1.2; PT Patient Result 12.6 SECS (9.8-11.9); Partial Thromboplastin Time 30.5 SECS (23.9-33.8)
[2020-04-16] MEDS ORDERED: SODIUM CHLORIDE 0.9% 1,000 ML IV STA (10:33)
[2020-04-16 10:41] LABS: Lymphocytes 1 % (20-55); Segmented Neutrophils 95 % (50-85); Total Cells Counted 100
[2020-04-16 10:42] LABS: Hypochromasia 2+; Platelet Estimate Adequate; Polychromasia Slight
[2020-04-16] MEDS ORDERED: ACETAMINOPHEN 325 MG TABLET PO PRN (12:48)
[2020-04-16] MEDS ORDERED: GLUCAGON 1 MG VIAL IM PRN (12:48)
[2020-04-16] MEDS ORDERED: ONDANSETRON 4 MG/2 ML VIAL IV PRN (12:48)
[2020-04-16] MEDS ORDERED: DEXTROSE 50% 25 GM/50 ML VIAL IV PRN (12:48)
[2020-04-16] MEDS ORDERED: LIPASE PROTEASE AMYLASE PO SCH ×2 (13:00→21:00)
[2020-04-16 13:24] LABS: Thyroid Stimulating Hormone 2.88 uIU/ml (0.358-3.74)
[2020-04-16] MEDS: ALBUTEROL 2.5 MG/3 ML NEB RESP TX SCH (15:40)
[2020-04-16] MEDS ORDERED: METOCLOPRAMIDE 5 MG TABLET PO PRN (19:55)
[2020-04-16] MEDS: SIMVASTATIN 40 MG TABLET PO SCH (21:01)
[2020-04-16] MEDS: METHADONE 10 MG TABLET PO SCH (21:01)
[2020-04-16] MEDS: SODIUM CHLORIDE 0.9% 1,000 ML IV SCH (21:10)
[2020-04-16] MEDS: ENOXAPARIN 30 MG/0.3 ML SYRINGE SUBCUT SCH (23:59)
[2020-04-17] MEDS ORDERED: ALBUTEROL/IPRATROPIUM 3 ML NEB RESP TX PRN (00:12)
[2020-04-17] MEDS: ALBUTEROL 2.5 MG/3 ML NEB RESP TX SCH ×2 (00:26→07:08)
[2020-04-17] MEDS: METOPROLOL SUCCINATE XL 25 MG TABLET PO SCH ×3 (01:07→21:04)
[2020-04-17 06:35] LABS: Basophils % 0.1 % (0.0-0.8); Hematocrit 25.5 VOL% (35.7-47.0); Hemoglobin 8.1 GM/DL (12.0-16.0); Immature Granulocytes % 0.5 %; Immature Granulocytes Absolute 0.05 #; Lymphocytes # 0.3 10*3/uL (1.4-4.0); Lymphocytes % 2.6 % (21.3-54.2); Mean Corpuscular HGB Conc 31.8 GM/DL (32-36); Mean Corpuscular Volume 94.8 FL (87-102); Mean Platelet Volume 10.7 FL (9.6-12.0); Monocytes % 5.9 % (1.7-12.7); Neutrophils % 90.9 % (38.7-73.9); Platelet Count 143 T/CUMM (130-400); Red Blood Count 2.69 MC/CUMM (3.8-5.5); Red Cell Distribution Width 16.7 % (9.3-17.3); White Blood Count 9.7 T/CUMM (4-12)
[2020-04-17 06:46] LABS: Albumin 1.9 G/DL (3.4-5.0); Bilirubin,Total 3.4 MG/DL (0.2-1.0); Osmolality,Calculated 268.2 MOS/KG (273-304); Total Protein 5.8 G/DL (6.4-8.3)
[2020-04-17 08:24] LABS: Lymphocytes 3 % (20-55); Segmented Neutrophils 97 % (50-85); Total Cells Counted 100
[2020-04-17 08:36] LABS: Hypochromasia 3+; Platelet Estimate Adequate
[2020-04-17 08:37] LABS: Burr Cells Few; Polychromasia Slight
[2020-04-17] MEDS: MAGNESIUM OXIDE 400 MG TABLET PO SCH (08:51)
[2020-04-17] MEDS: THYROID 60 MG TABLET PO SCH (08:51)
[2020-04-17] MEDS: METHADONE 10 MG TABLET PO SCH ×3 (08:52→21:03)
[2020-04-17] MEDS: AZITHROMYCIN INJ 250 MG in SODIUM CHLORIDE 0.9% 250 ML IV SCH (08:54)
[2020-04-17] MEDS ORDERED: NON-FORMULARY MEDICATION (Biotin 10,000 MCG) PO SCH (09:00)
[2020-04-17] MEDS: LEVOFLOXACIN INJ 500 MG in PREMIX 1 EACH IV SCH (10:25)
[2020-04-17] MEDS: SODIUM CHLORIDE 0.9% 1,000 ML IV SCH ×2 (15:05→15:34)
[2020-04-17] MEDS: SIMVASTATIN 40 MG TABLET PO SCH (21:03)
[2020-04-17] MEDS: ENOXAPARIN 30 MG/0.3 ML SYRINGE SUBCUT SCH (21:04)
[2020-04-18] MEDS: SODIUM CHLORIDE 0.9% 1,000 ML IV SCH ×2 (05:35→13:19)
[2020-04-18 05:43] LABS: Basophils % 0.1 % (0.0-0.8); Eosinophils % 0.2 % (0.00-10.9); Hematocrit 26.3 VOL% (35.7-47.0); Hemoglobin 8.7 GM/DL (12.0-16.0); Immature Granulocytes % 1.1 %; Lymphocytes # 0.4 10*3/uL (1.4-4.0); Lymphocytes % 4.2 % (21.3-54.2); Mean Corpuscular HGB Conc 33.1 GM/DL (32-36); Mean Corpuscular Volume 89.5 FL (87-102); Monocytes % 8.4 % (1.7-12.7); Platelet Count 111 T/CUMM (130-400); Red Blood Count 2.94 MC/CUMM (3.8-5.5); White Blood Count 8.7 T/CUMM (4-12)
[2020-04-18 06:03] LABS: Lymphocytes 2 % (20-55); Nucleated Red Blood Cells 1 (0-5); Segmented Neutrophils 95 % (50-85); Total Cells Counted 100
[2020-04-18 06:04] LABS: Calcium 8.4 MG/DL (8.5-10.1); Hypochromasia 1+; Osmolality,Calculated 267.9 MOS/KG (273-304); Ovalocytes Slight
[2020-04-18] MEDS: ALBUTEROL 2.5 MG/3 ML NEB RESP TX SCH (07:18)
[2020-04-18] MEDS: AZITHROMYCIN INJ 250 MG in SODIUM CHLORIDE 0.9% 250 ML IV SCH (08:00)
[2020-04-18] MEDS: THYROID 60 MG TABLET PO SCH (08:31)
[2020-04-18] MEDS: METHADONE 10 MG TABLET PO SCH ×3 (08:31→20:20)
[2020-04-18] MEDS: MAGNESIUM OXIDE 400 MG TABLET PO SCH (08:31)
[2020-04-18] MEDS: METOPROLOL SUCCINATE XL 25 MG TABLET PO SCH ×2 (08:31→20:36)
[2020-04-18] MEDS: LEVOFLOXACIN INJ 500 MG in PREMIX 1 EACH IV SCH ×3 (12:13→15:46)
[2020-04-18] MEDS ORDERED: TEMAZEPAM 7.5 MG CAPSULE PO PRN (13:42)
[2020-04-18] MEDS ORDERED: MYLANTA/LIDO VISC 2:1 300 ML BOTTLE SWISH/SPIT PRN (13:42)
[2020-04-18] MEDS ORDERED: ONDANSETRON 4 MG/2 ML VIAL IV PRN (13:42)
[2020-04-18] MEDS ORDERED: PROMETHAZINE INJ 25 MG in SODIUM CHLORIDE 0.9% 50 ML IV PRN (13:42)
[2020-04-18] MEDS ORDERED: LACTULOSE 20 GM/30 ML UDCUP PO PRN (13:42)
[2020-04-18] MEDS ORDERED: guaiFENesin 200 MG/10 ML UDCUP PO PRN (13:42)
[2020-04-18] MEDS ORDERED: MAGNESIUM HYDROXIDE SUSP 30 ML UDCUP PO PRN (13:42)
[2020-04-18] MEDS ORDERED: traMADol 50 MG TABLET PO PRN (13:42)
[2020-04-18] MEDS ORDERED: MYLANTA/LIDO VISC 2:1 300 ML BOTTLE SWISH/SWAL PRN (13:42)
[2020-04-18] MEDS ORDERED: LOPERAMIDE 2 MG CAPSULE PO PRN ×2 (13:42)
[2020-04-18] MEDS ORDERED: diphenhydrAMINE CAP 25 MG CAPSULE PO PRN (13:42)
[2020-04-18] MEDS ORDERED: ALUMINUM/MAGNES/SIMETH MAX STR 30 ML UDCUP PO PRN (13:42)
[2020-04-18] MEDS ORDERED: HYDROmorphone 2 MG/1 ML VIAL IV PRN (14:00)
[2020-04-18] MEDS ORDERED: METHADONE 10 MG TABLET PO SCH (15:00)
[2020-04-18] MEDS: ALPRAZolam 0.25 MG TABLET PO PRN (15:14)
[2020-04-18] MEDS ORDERED: LEVOFLOXACIN INJ 500 MG in PREMIX 1 EACH IV SCH (17:00)
[2020-04-18] MEDS: ENOXAPARIN 30 MG/0.3 ML SYRINGE SUBCUT SCH (20:20)
[2020-04-19] MEDS: METHADONE 10 MG TABLET PO SCH ×3 (03:28→15:45)
[2020-04-19] MEDS: ALBUTEROL 2.5 MG/3 ML NEB RESP TX SCH (07:36)
[2020-04-19] MEDS ORDERED: QUEtiapine 25 MG TABLET PO PRN (08:40)
[2020-04-19] MEDS: THYROID 60 MG TABLET PO SCH (10:06)
[2020-04-19] MEDS: MAGNESIUM OXIDE 400 MG TABLET PO SCH (10:09)
[2020-04-19] MEDS: METOPROLOL SUCCINATE XL 25 MG TABLET PO SCH (10:10)
[2020-04-19] MEDS: ALPRAZolam 0.25 MG TABLET PO PRN (10:10)
[2020-04-19] MEDS ORDERED: ERTAPENEM 1,000 MG in SODIUM CHLORIDE 0.9% 100 ML IV SCH (15:00)
[2020-04-19] MEDS ORDERED: LORazepam 0.5 MG TABLET PO ONE (15:32)
[2020-04-19 17:47] VITALS: BP 100/64
== END 2020-04-19 16:12 | disposition hospice, home (50) | DRG 690 ==
LOC: EDUNIT# → EDBD → N.ED 08:32 → N.EDINP 12:46 → SUATTDRO 12:46 → N.EDINP 13:50 → N.4E 13:54
PROVIDERS: ADMIT Family Medicine; ATTEND Internal Medicine